=== PATIENT | female | born 2000 | race Caucasian/White ===

== ENCOUNTER 2022-10-09 14:26 | Inpatient (IN) ==
[2022-10-09] MEDS ORDERED: LIDOCAINE 1% LOCAL 20 ML VIAL INFIL PRN (14:42)
[2022-10-09] MEDS ORDERED: OXYTOCIN 30 UNITS/500 ML BAG IV PRN ×2 (14:42)
[2022-10-09] MEDS ORDERED: PENICILLIN G POTASSIUM 6 MU in DEXTROSE 5% 250 ML IV STA (14:46)
[2022-10-09 15:10] LABS: Hematocrit (blood only) 36.1 % (37.0-47.0); Hemoglobin 12.6 g/dl (12.0-16.0); Mean Corpuscular Hemoglobin 29.9 pg (25.0-34.0); Mean Corpuscular Hgb Conc 34.9 g/dL (32.0-36.0); Mean Corpuscular Volume 85.7 fL (80.0-100.0); Mean Platelet Volume 11.2 fL (9.4-12.4); Platelet Count 253 K/uL (130-400); RDW Coefficient of Variation 12.9 % (11.5-14.5); RDW Standard Deviation 39.6 fL (36.4-46.3); Red Blood Count 4.21 M/uL (4.20-5.40)
[2022-10-09] MEDS: LACTATED RINGER'S 1,000 ML IV PRN ×2 (16:09→23:05)
--- NOTE | 2022-10-09 16:21 | History & Physical Report ---
Date of Service October 09, 2022 Assessment & Plan (1) Encounter for supervision of normal intrauterine in primigravida, antepartum: Plan: IUP at 39+ weeks for IOL complicated by GDM diet controlled. GBS -positive- PCN G begun now cervical balloon placed without difficulty and pitocin induction begun per protocol anticipate vaginal Admission and Anticipated Discharge Date Admission Date: October 09, 2022 History of Present Illness Primary Care Provider: Jamia Wagner PA-C Patient is a 22 yo EDC 10/12/22 who presents for IOL at 39 4/7 weeks. GBS positive . complicated by obesity, hypothyroidism and GDM. growth scans have been AGA. Allergies Allergy/AdvReac Type Severity Reaction Status Date / Time No Known Allergies Allergy Verified 10/08/22 11:03 Home Medications Medication Instructions Recorded Confirmed Type escitalopram oxalate 10 mg tablet 10 mg PO DAILY 04/16/21 10/09/22 History prenat.vits,stephan,[id number] 1 tab PO DAILY 08/27/21 10/08/22 History betamethasone dipropionate 0.05 % 1 applic topical BID PRN flare ups 03/26/22 10/08/22 History lotion levothyroxine 150 mcg tablet 150 mcg PO DAILY #30 tabs 08/05/22 10/09/22 Rx Patient History Medical History (Updated 09/23/22 @ 09:55 by Pilar Atkinson) Anxiety Hypothyroidism Missed Surgical History No significant past surgical history Family History Grandfather (Maternal) Hypertension Parkinson disease Aunt Hypothyroid Denies family history of Ovarian cancer Breast cancer Lung cancer Colorectal cancer Social History (Updated 03/26/22 @ 17:20 by Bonnie Baum) Smoking Status: Never smoker Do You Dip or Chew Tobacco: No; Hx Alcohol Use: No Hx Substance Use: No Preferred Language: Slovak Communication Ability: Effective marital status: marital status details: Olvin (23) [phone] Current Living Situation: Spouse Current Living Situation Comment: FOB and 4 dogs current occupational status: unemployed current occupation: manage rental properties. How many Children do You have: 0 Feels Safe at Home: Yes Review of Systems All systems reviewed & are unremarkable except as noted in HPI & below Physical Exam Constitutional: WD/WN, vitals as above Psychiatric: A+Ox3, euthymic affect Genitourinary: OB Exam Abdomen: + vertex, + estimated weight (7-8 pounds) and + irregular contractions Manual OB Exam: + cervical dilation 1 cm, + cervical effacement 50% and + station -2 OB Exam Monitor Tracing: + external FHT monitor used, + external uterine monitor used, + category I and + normal FHT variability cervical balloon inserted into the internal os and then filled with 40 cc sterile water. the catheter was then put on traction and secured to her left thigh. patient tolerated procedure well. Results & Data Vital Signs (Past 12 Hours) Vital Signs Pulse BP 10/09/22 16:11 78 10/09/22 16:11 138/75 10/09/22 15:51 90 140/88 10/09/22 15:41 91 H 136/105 H 10/09/22 15:32 88 163/75 H 10/09/22 15:22 93 H 141/71 H 10/09/22 15:10 90 146/84 H Code Status & VTE Plan VTE Prophylaxis Plan VTE Prophylaxis will be ordered: No Coding Level of Care Code None Diagnoses Encounter for supervision of normal intrauterine in primigravida, antepartum Z34.00
[2022-10-09] MEDS: PENICILLIN G POTASSIUM 3 MU in DEXTROSE 5% 100 ML IV PRN (20:15)
[2022-10-09] MEDS ORDERED: LIDOCAINE 2%/EPINEPHRINE 1:200,000 20 ML PF ONE (22:35)
[2022-10-09] MEDS ORDERED: SODIUM CHLORIDE 0.9% PF INJ 10 ML VIAL ONE (22:35)
[2022-10-09] MEDS ORDERED: ePHEDrine sulfate 50 MG/ML AMP ONE (22:35)
[2022-10-09] MEDS ORDERED: BUPIVACAINE 0.25% PF 30 ML VIAL ONE (22:35)
[2022-10-09] MEDS ORDERED: fentaNYL citrate PF 100 MCG/2 ML VIAL ONE (22:35)
[2022-10-09] MEDS ORDERED: fentaNYL 2MCG/ML ROPIVACAINE 1.25MG/ML 100 ML BAG EPI ONE (22:36)
[2022-10-09] MEDS ORDERED: fentaNYL 2MCG/ML ROPIVACAINE 1.25MG/ML 100 ML BAG EPI PRN (23:37)
[2022-10-09] MEDS ORDERED: ONDANSETRON INJ 2 MG/ML 2 ML VIAL IV PRN (23:37)
[2022-10-09] MEDS ORDERED: ePHEDrine sulfate 50 MG/ML AMP IV PRN (23:37)
[2022-10-09] MEDS ORDERED: diphenhydrAMINE 50 MG/ML VIAL IV PRN (23:37)
[2022-10-09] MEDS ORDERED: LIDOCAINE 2% MPF LOCAL 5 ML VIAL EPI PRN (23:37)
[2022-10-09] MEDS ORDERED: BUPIVACAINE 0.25% PF 30 ML VIAL EPI STA (23:37)
[2022-10-09] MEDS ORDERED: ROPIVACAINE 0.5% PF 5 MG/ML 20 ML VIAL EPI PRN (23:37)
[2022-10-09] MEDS ORDERED: NALBUPHINE HCL INJ 10 MG/ML AMP IV PRN (23:37)
[2022-10-09] MEDS ORDERED: NALOXONE HCL 1 MG in SODIUM CHLORIDE 0.9% 1000ML 1,000 ML IV PRN (23:37)
[2022-10-09] MEDS ORDERED: fentaNYL citrate PF 100 MCG/2 ML VIAL EPI PRN (23:37)
[2022-10-09] MEDS ORDERED: SODIUM CHLORIDE 0.9% PF INJ 10 ML VIAL EPI PRN (23:37)
[2022-10-09] MEDS ORDERED: fentaNYL citrate PF 100 MCG/2 ML VIAL EPI STA (23:37)
[2022-10-09] MEDS ORDERED: BUPIVACAINE 0.25% PF 30 ML VIAL EPI PRN (23:37)
[2022-10-09] MEDS ORDERED: SODIUM CHLORIDE 0.9% PF INJ 10 ML VIAL EPI STA (23:37)
[2022-10-09] MEDS ORDERED: NALOXONE HCL 0.4 MG/1 ML VIAL/CARP IV PRN (23:37)
[2022-10-09] MEDS ORDERED: LIDOCAINE 2%/EPINEPHRINE 1:200,000 20 ML PF EPI STA (23:37)
--- NOTE | 2022-10-09 23:37 | Anesthesiology Consultation ---
Date of Service October 09, 2022 Assessment & Plan Chart Review Chart Review: Patient NOT seen in Pre Admission Testing and Acceptable Risk for Labor Epidural Consults Requested none ASA ASA2 Proposed Anesthesia Anesthesia Type: Labor Epidural Risk / Benefits Reviewed With: PT / POA / Parent / Guardian, Accepts Plan and Informed Consent Obtained History Height/Weight Height: 5 ft 7 in Weight: 136.263 kg Allergies Allergy/AdvReac Type Severity Reaction Status Date / Time No Known Allergies Allergy Verified 10/08/22 11:03 Medications Home Medications Medication Instructions Recorded Confirmed Last Taken escitalopram oxalate 10 mg tablet 10 mg PO DAILY 04/16/21 10/09/22 10/08/22 22:00 prenat.vits,stephan,uvm-rjig-buusa 1 tab PO DAILY 08/27/21 10/08/22 10/09/22 08:00 betamethasone dipropionate 0.05 % 1 applic topical BID PRN flare ups 03/26/22 10/08/22 Unknown lotion levothyroxine 150 mcg tablet 150 mcg PO DAILY #30 tabs 08/05/22 10/09/22 10/09/22 08:00 Active Medications Generic Name Dose Route Start Last Admin Trade Name Freq PRN Reason Stop Dose Admin Oxytocin 30 units in 500 mls @ 11 mls/hr 10/09/22 14:42 10/09/22 21:03 Pitocin IV 10/11/22 14:41 0.66 units/hr .Q24H PRN 11 mls/hr Labor Induction/Augmentation Titration Protocol 0.66 UNITS/HR Lactated Ringer's 1,000 mls @ 125 mls/hr 10/09/22 14:42 10/09/22 23:05 Lr IV 10/11/22 14:41 125 mls/hr .Q8H PRN Administration L&D Protocol Protocol Penicillin G Potassium 3 mu/ 106 mls @ 100 mls/hr 10/09/22 17:42 10/09/22 21:20 Dextrose IV 10/19/22 17:41 Infused Q4H PRN Infusion GBS(+) Until Delivery Past Medical History Medical History (Updated 09/23/22 @ 09:55 by Pilar Atkinson) Anxiety Hypothyroidism Missed Exercise / Class Metabolic Activity II 4-5 Yardwork/Stairs/Walk up hill Past Family History Family History Grandfather (Maternal) Hypertension Parkinson disease Aunt Hypothyroid Denies family history of Ovarian cancer Breast cancer Lung cancer Colorectal cancer Past Surgical History Surgical History No significant past surgical history Past Anesthesia History No Hx of Anesthesia Complications and No Family Hx of Anesthesia Complications History of PONV No Hx of PONV and No Hx of Motion Sickness Social History Smoking Status: Never smoker Do You Dip or Chew Tobacco: No Hx Alcohol Use: No Hx Substance Use: No Physical Exam Vital Signs Last Vital Signs Temp 36.9 C 10/09/22 19:00 Pulse 82 10/09/22 23:34 Resp 18 10/09/22 19:00 BP 129/60 10/09/22 23:36 Pulse Ox 98 10/09/22 23:34 ENMT Mouth: no dentition abnormality Thyromental Distance: > or= 3.5 Finger Breadths Mallampati Class: II Neck normal visual inspection Respiratory normal respiratory effort Auscultation: lungs clear to auscultation bilaterally Cardiovascular Rate/Rhythm: regular rate and regular rhythm Psychiatric Orientation: alert Testing Laboratory Results 10/09/22 14:52 Blood Type O Positive 10/09/22 14:52 Antibody Screen NEGATIVE 10/09/22 14:52 10/09/22 20:00 POC Glucose 84
[2022-10-10] MEDS: PENICILLIN G POTASSIUM 3 MU in DEXTROSE 5% 100 ML IV PRN ×3 (00:08→08:26)
[2022-10-10] MEDS ORDERED: LEVOTHYROXINE SODIUM 150 MCG TABLET PO SCH (06:30)
[2022-10-10] MEDS: LACTATED RINGER'S 1,000 ML IV PRN (06:31)
[2022-10-10] MEDS ORDERED: ESCITALOPRAM OXALATE 10 MG TAB PO SCH (09:00)
--- NOTE | 2022-10-10 09:05 | Labor Progress Brief Note ---
Date of Service October 10, 2022 Change of on-call at 830 I have examined the patient she still remains at most 5 cm and is -2 very high and posterior she has an IUPC in place and is showing adequate contractions with well over 200 [place] units per 10 minutes block there are some decelerations with contractions which follow an early pattern otherwise the tracing is reassuring this has been induction from yesterday as well I reviewed with the patient that the progress does seem slow I will reassess her as long as contractions are adequate and see if there is any change we discussed if there is no change of the heart rate becomes nonreassuring would recommend I have updated patient with her status and answered their questions Assessment & Plan Admission and Anticipated Discharge Date Admission Date: October 09, 2022 Results & Data Vital Signs (Past 12 Hours) Vital Signs Temp Pulse Resp BP Pulse Ox 10/10/22 08:58 79 98 10/10/22 08:53 78 98 10/10/22 08:49 81 140/76 10/10/22 08:48 81 96 10/10/22 08:43 73 100 10/10/22 08:38 77 99 10/10/22 08:33 97 10/10/22 08:33 73 10/10/22 08:34 75 113/55 L 10/10/22 08:33 77 89 L 10/10/22 08:28 76 99 10/10/22 08:23 76 98 10/10/22 08:18 75 97 10/10/22 08:19 75 123/63 10/10/22 08:13 77 99 10/10/22 08:08 80 96 10/10/22 08:05 71 123/57 L 10/10/22 08:03 77 99 10/10/22 08:00 81 87 L 10/10/22 07:58 82 98 10/10/22 07:53 77 96 10/10/22 07:49 75 126/61 10/10/22 07:48 74 94 10/10/22 07:43 73 97 10/10/22 07:38 74 97 10/10/22 07:35 74 126/63 10/10/22 07:33 74 99 10/10/22 07:25 19 10/10/22 07:25 98.1 F 19 10/10/22 07:28 81 99 10/10/22 07:23 88 90 10/10/22 07:24 90 86 L 10/10/22 07:20 87 134/80 10/10/22 07:18 76 98 10/10/22 07:13 77 98 10/10/22 07:08 83 98 10/10/22 07:03 90 92 10/10/22 07:04 86 138/71 10/10/22 06:58 79 95 10/10/22 06:53 73 96 10/10/22 06:50 75 118/56 L 10/10/22 06:48 81 97 10/10/22 06:43 79 96 10/10/22 06:38 76 96 10/10/22 06:30 18 10/10/22 06:30 18 10/10/22 06:33 75 94 10/10/22 06:34 74 122/61 10/10/22 06:28 77 96 10/10/22 06:23 72 96 10/10/22 06:21 72 120/58 L 10/10/22 06:18 73 95 10/10/22 06:13 74 96 10/10/22 06:00 18 10/10/22 06:00 18 10/10/22 06:08 74 95 10/10/22 06:05 76 123/60 10/10/22 06:03 79 97 10/10/22 05:58 74 95 10/10/22 05:53 72 98 10/10/22 05:49 66 119/56 L 10/10/22 05:48 70 96 10/10/22 05:30 18 10/10/22 05:30 18 10/10/22 05:43 91 H 93 10/10/22 05:38 79 98 10/10/22 05:33 78 99 10/10/22 05:34 77 138/74 10/10/22 05:28 85 98 10/10/22 05:23 74 94 10/10/22 05:18 75 94 10/10/22 05:19 67 122/58 L 10/10/22 05:00 18 10/10/22 05:00 98.4 F 18 10/10/22 05:13 80 97 10/10/22 05:08 80 96 10/10/22 05:03 73 97 10/10/22 05:04 75 127/58 L 10/10/22 04:58 84 97 10/10/22 04:53 70 96 10/10/22 04:30 18 10/10/22 04:30 18 10/10/22 04:48 75 96 10/10/22 04:49 73 120/57 L 10/10/22 04:00 18 10/10/22 04:00 18 10/10/22 03:30 18 10/10/22 03:30 18 10/10/22 04:44 74 88 L 10/10/22 04:43 75 95 10/10/22 04:38 85 99 10/10/22 04:33 70 94 10/10/22 04:34 67 121/56 L 10/10/22 04:28 73 96 10/10/22 04:29 78 86 L 10/10/22 04:23 75 93 10/10/22 04:18 79 95 10/10/22 04:19 76 126/64 10/10/22 04:13 76 96 10/10/22 04:08 71 96 10/10/22 04:04 67 123/58 L 10/10/22 04:03 67 94 10/10/22 03:58 71 96 10/10/22 03:53 76 96 10/10/22 03:48 75 98 10/10/22 03:43 74 97 10/10/22 03:38 93 H 98 10/10/22 03:34 81 133/70 10/10/22 03:33 85 98 10/10/22 03:28 87 97 10/10/22 03:23 85 97 10/10/22 03:18 84 98 10/10/22 03:19 85 145/82 H 10/10/22 03:13 89 97 10/10/22 03:08 94 H 96 10/10/22 03:00 18 10/10/22 03:00 18 10/10/22 03:04 78 133/66 10/10/22 03:03 82 96 10/10/22 02:58 79 96 10/10/22 02:53 82 95 10/10/22 02:48 78 96 10/10/22 02:49 75 128/62 10/10/22 02:43 76 96 10/10/22 02:38 76 96 10/10/22 02:00 18 10/10/22 02:00 18 10/10/22 02:30 18 10/10/22 02:30 18 10/10/22 02:35 77 136/69 10/10/22 02:33 76 96 10/10/22 02:28 73 97 10/10/22 02:23 80 97 10/10/22 02:20 80 143/69 H 94 10/10/22 02:18 89 96 10/10/22 02:13 83 96 10/10/22 02:08 75 96 10/10/22 02:05 78 129/61 94 10/10/22 02:03 87 97 10/10/22 01:58 79 95 10/10/22 01:53 81 95 10/10/22 01:48 86 96 10/10/22 01:49 81 124/66 93 10/10/22 01:30 18 10/10/22 01:30 18 10/10/22 01:43 79 96 10/10/22 01:38 79 96 10/10/22 01:33 77 93 10/10/22 01:34 77 121/64 10/10/22 01:28 80 96 10/10/22 01:23 76 96 10/10/22 01:00 18 10/10/22 01:00 18 10/10/22 01:18 77 95 10/10/22 01:14 77 98 10/10/22 01:00 18 10/10/22 01:00 18 10/10/22 01:09 97 10/10/22 01:09 75 10/10/22 01:09 72 114/58 L 10/10/22 01:04 77 97 10/10/22 00:59 74 97 10/10/22 00:54 74 97 10/10/22 00:55 73 123/60 10/10/22 00:49 86 98 10/10/22 00:44 77 97 10/10/22 00:39 68 119/59 L 96 10/10/22 00:30 98.2 F 18 10/10/22 00:36 72 94 10/10/22 00:34 69 95 10/10/22 00:29 74 99 10/10/22 00:27 104 H 92 10/10/22 00:24 86 99 10/10/22 00:00 18 10/10/22 00:00 18 10/10/22 00:19 78 98 10/10/22 00:14 72 97 10/10/22 00:09 98 10/10/22 00:09 73 10/10/22 00:10 68 135/63 10/10/22 00:09 73 132/63 10/10/22 00:04 73 97 10/09/22 23:59 97 10/09/22 23:59 72 10/09/22 23:29 18 10/09/22 23:29 18 10/09/22 23:50 18 10/09/22 23:50 18 10/09/22 23:54 98 10/09/22 23:54 76 10/09/22 23:39 98.2 F 10/09/22 23:54 76 10/09/22 23:54 136/63 10/09/22 23:52 71 10/09/22 23:52 132/63 10/09/22 23:49 98 10/09/22 23:49 86 10/09/22 23:48 91 10/09/22 23:48 89 10/09/22 23:44 97 10/09/22 23:44 90 10/09/22 23:44 151/63 H 10/09/22 23:42 78 10/09/22 23:42 146/63 H 10/09/22 23:39 97 10/09/22 23:40 94 10/09/22 23:39 81 10/09/22 23:40 78 10/09/22 23:40 135/58 L 10/09/22 23:38 83 10/09/22 23:38 127/59 L 10/09/22 23:36 79 10/09/22 23:36 129/60 10/09/22 23:34 98 10/09/22 23:34 82 10/09/22 23:34 93 10/09/22 23:34 85 06 23:34 129/65 10/09/22 23:32 91 H 10/09/22 23:32 132/62 10/09/22 23:29 97 10/09/22 23:29 91 H 10/09/22 23:30 89 06 23:30 143/65 H 10/09/22 23:28 92 10/09/22 23:28 90 10/09/22 23:28 143/66 H 10/09/22 23:26 85 10/09/22 23:26 146/71 H 10/09/22 23:24 96 10/09/22 23:24 86 10/09/22 23:21 93 10/09/22 23:21 94 H 10/09/22 23:19 98 10/09/22 23:19 92 H 10/09/22 23:14 97 10/09/22 23:14 84 10/09/22 22:56 98 10/09/22 22:56 77 10/09/22 22:51 98 10/09/22 22:51 71 10/09/22 22:46 97 10/09/22 22:46 78 10/09/22 22:41 97 10/09/22 22:41 77 10/09/22 22:36 97 10/09/22 22:36 82 10/09/22 22:31 97 10/09/22 22:31 72 10/09/22 22:30 67 10/09/22 22:30 124/60 10/09/22 21:18 66 10/09/22 21:18 115/56 L Coding Level of Care Code None Diagnoses
--- NOTE | 2022-10-10 10:33 | Labor Progress Brief Note ---
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 The patient was counseled to the nature of the procedure including alternatives such as labor. Risks were discussed including bleeding infection injury to bowel bladder ureter vessels and even baby. Deep Vein thrombosis, pulmonary embolus discussed. Breakdown of incision reviewed. Deep vein thrombosis pulmonary embolus hernia and failure of the incision to heal were discussed Patient verbalized understanding of this and was given ample time to ask questions Assessment & Plan Admission and Anticipated Discharge Date Admission Date: October 09, 2022 Results & Data Vital Signs (Past 12 Hours) Vital Signs Temp Pulse Resp BP Pulse Ox 10/10/22 10:28 113 H 100 10/10/22 10:23 74 97 10/10/22 10:19 74 140/72 10/10/22 10:18 86 98 10/10/22 10:13 99.1 F 80 18 97 10/10/22 10:08 77 98 10/10/22 10:04 86 137/75 10/10/22 10:03 78 99 10/10/22 09:58 78 98 10/10/22 09:53 79 98 10/10/22 09:48 80 97 10/10/22 09:49 75 140/75 10/10/22 09:43 75 98 10/10/22 09:38 77 97 10/10/22 09:34 76 135/71 10/10/22 09:33 79 98 10/10/22 09:28 79 98 10/10/22 09:23 75 98 10/10/22 09:20 82 133/83 10/10/22 09:18 81 97 10/10/22 09:13 81 99 10/10/22 09:08 75 98 10/10/22 09:04 74 138/78 10/10/22 09:03 78 98 10/10/22 08:58 79 98 10/10/22 08:53 78 98 10/10/22 08:49 81 140/76 10/10/22 08:48 81 96 10/10/22 08:43 73 100 10/10/22 08:38 77 99 10/10/22 08:33 97 10/10/22 08:33 73 10/10/22 08:34 75 113/55 L 10/10/22 08:33 77 89 L 10/10/22 08:28 76 99 10/10/22 08:23 76 98 10/10/22 08:18 75 97 10/10/22 08:19 75 123/63 10/10/22 08:13 77 99 10/10/22 08:08 80 96 10/10/22 08:05 71 123/57 L 10/10/22 08:03 77 99 10/10/22 08:00 81 87 L 10/10/22 07:58 82 98 10/10/22 07:53 77 96 10/10/22 07:49 75 126/61 10/10/22 07:48 74 94 10/10/22 07:43 73 97 10/10/22 07:38 74 97 10/10/22 07:35 74 126/63 10/10/22 07:33 74 99 10/10/22 07:25 19 10/10/22 07:25 98.1 F 19 10/10/22 07:28 81 99 10/10/22 07:23 88 90 10/10/22 07:24 90 86 L 10/10/22 07:20 87 134/80 10/10/22 07:18 76 98 10/10/22 07:13 77 98 10/10/22 07:08 83 98 10/10/22 07:03 90 92 10/10/22 07:04 86 138/71 10/10/22 06:58 79 95 10/10/22 06:53 73 96 10/10/22 06:50 75 118/56 L 10/10/22 06:48 81 97 10/10/22 06:43 79 96 10/10/22 06:38 76 96 06 06:30 18 06/22/23 06:30 18 10/10/22 06:33 75 94 10/10/22 06:34 74 122/61 10/10/22 06:28 77 96 10/10/22 06:23 72 96 10/10/22 06:21 72 120/58 L 10/10/22 06:18 73 95 10/10/22 06:13 74 96 10/10/22 06:00 18 10/10/22 06:00 18 10/10/22 06:08 74 95 10/10/22 06:05 76 123/60 10/10/22 06:03 79 97 10/10/22 05:58 74 95 10/10/22 05:53 72 98 10/10/22 05:49 66 119/56 L 10/10/22 05:48 70 96 10/10/22 05:30 18 10/10/22 05:30 18 10/10/22 05:43 91 H 93 10/10/22 05:38 79 98 10/10/22 05:33 78 99 10/10/22 05:34 77 138/74 10/10/22 05:28 85 98 10/10/22 05:23 74 94 10/10/22 05:18 75 94 10/10/22 05:19 67 122/58 L 10/10/22 05:00 18 10/10/22 05:00 98.4 F 18 10/10/22 05:13 80 97 10/10/22 05:08 80 96 10/10/22 05:03 73 97 10/10/22 05:04 75 127/58 L 10/10/22 04:58 84 97 10/10/22 04:53 70 96 10/10/22 04:30 18 10/10/22 04:30 18 10/10/22 04:48 75 96 10/10/22 04:49 73 120/57 L 10/10/22 04:00 18 10/10/22 04:00 18 10/10/22 03:30 18 10/10/22 03:30 18 10/10/22 04:44 74 88 L 10/10/22 04:43 75 95 10/10/22 04:38 85 99 10/10/22 04:33 70 94 10/10/22 04:34 67 121/56 L 10/10/22 04:28 73 96 10/10/22 04:29 78 86 L 10/10/22 04:23 75 93 10/10/22 04:18 79 95 10/10/22 04:19 76 126/64 10/10/22 04:13 76 96 10/10/22 04:08 71 96 10/10/22 04:04 67 123/58 L 10/10/22 04:03 67 94 10/10/22 03:58 71 96 10/10/22 03:53 76 96 10/10/22 03:48 75 98 10/10/22 03:43 74 97 10/10/22 03:38 93 H 98 10/10/22 03:34 81 133/70 10/10/22 03:33 85 98 10/10/22 03:28 87 97 10/10/22 03:23 85 97 10/10/22 03:18 84 98 10/10/22 03:19 85 145/82 H 10/10/22 03:13 89 97 10/10/22 03:08 94 H 96 10/10/22 03:00 18 10/10/22 03:00 18 10/10/22 03:04 78 133/66 10/10/22 03:03 82 96 10/10/22 02:58 79 96 10/10/22 02:53 82 95 10/10/22 02:48 78 96 10/10/22 02:49 75 128/62 10/10/22 02:43 76 96 10/10/22 02:38 76 96 10/10/22 02:00 18 10/10/22 02:00 18 10/10/22 02:30 18 10/10/22 02:30 18 10/10/22 02:35 77 136/69 10/10/22 02:33 76 96 10/10/22 02:28 73 97 10/10/22 02:23 80 97 10/10/22 02:20 80 143/69 H 94 10/10/22 02:18 89 96 10/10/22 02:13 83 96 10/10/22 02:08 75 96 10/10/22 02:05 78 129/61 94 10/10/22 02:03 87 97 10/10/22 01:58 79 95 10/10/22 01:53 81 95 10/10/22 01:48 86 96 10/10/22 01:49 81 124/66 93 10/10/22 01:30 18 10/10/22 01:30 18 10/10/22 01:43 79 96 10/10/22 01:38 79 96 10/10/22 01:33 77 93 10/10/22 01:34 77 121/64 10/10/22 01:28 80 96 10/10/22 01:23 76 96 10/10/22 01:00 18 10/10/22 01:00 18 10/10/22 01:18 77 95 10/10/22 01:14 77 98 10/10/22 01:00 18 10/10/22 01:00 18 10/10/22 01:09 97 10/10/22 01:09 75 10/10/22 01:09 72 114/58 L 10/10/22 01:04 77 97 10/10/22 00:59 74 97 10/10/22 00:54 74 97 10/10/22 00:55 73 123/60 10/10/22 00:49 86 98 10/10/22 00:44 77 97 10/10/22 00:39 68 119/59 L 96 10/10/22 00:30 98.2 F 18 10/10/22 00:36 72 94 10/10/22 00:34 69 95 10/10/22 00:29 74 99 10/10/22 00:27 104 H 92 10/10/22 00:24 86 99 10/10/22 00:00 18 10/10/22 00:00 18 10/10/22 00:19 78 98 10/10/22 00:14 72 97 10/10/22 00:09 98 10/10/22 00:09 73 10/10/22 00:10 68 135/63 10/10/22 00:09 73 132/63 10/10/22 00:04 73 97 10/09/22 23:59 97 10/09/22 23:59 72 06 23:29 18 10/09/22 23:29 18 10/09/22 23:50 18 10/09/22 23:50 18 10/09/22 23:54 98 10/09/22 23:54 76 10/09/22 23:39 98.2 F 10/09/22 23:54 76 10/09/22 23:54 136/63 10/09/22 23:52 71 10/09/22 23:52 132/63 10/09/22 23:49 98 10/09/22 23:49 86 10/09/22 23:48 91 10/09/22 23:48 89 10/09/22 23:44 97 10/09/22 23:44 90 10/09/22 23:44 151/63 H 10/09/22 23:42 78 06 23:42 146/63 H 10/09/22 23:39 97 10/09/22 23:40 94 10/09/22 23:39 81 10/09/22 23:40 78 10/09/22 23:40 135/58 L 10/09/22 23:38 83 10/09/22 23:38 127/59 L 10/09/22 23:36 79 10/09/22 23:36 129/60 10/09/22 23:34 98 10/09/22 23:34 82 10/09/22 23:34 93 10/09/22 23:34 85 10/09/22 23:34 129/65 10/09/22 23:32 91 H 10/09/22 23:32 132/62 10/09/22 23:29 97 10/09/22 23:29 91 H 10/09/22 23:30 89 10/09/22 23:30 143/65 H 10/09/22 23:28 92 10/09/22 23:28 90 10/09/22 23:28 143/66 H 10/09/22 23:26 85 06 23:26 146/71 H 10/09/22 23:24 96 06 23:24 86 10/09/22 23:21 93 06 23:21 94 H 10/09/22 23:19 98 10/09/22 23:19 92 H 10/09/22 23:14 97 10/09/22 23:14 84 10/09/22 22:56 98 10/09/22 22:56 77 10/09/22 22:51 98 10/09/22 22:51 71 10/09/22 22:46 97 10/09/22 22:46 78 10/09/22 22:41 97 10/09/22 22:41 77 10/09/22 22:36 97 10/09/22 22:36 82 Coding Level of Care Code None Diagnoses
[2022-10-10] MEDS ORDERED: LIDOCAINE 2%/EPINEPHRINE 1:200,000 20 ML PF ONE (10:45)
[2022-10-10] MEDS ORDERED: OXYTOCIN 10 UNITS/ML VIAL ONE (10:46)
[2022-10-10] MEDS ORDERED: MoRPHine SULFATE PF 1 MG/ML 10 ML AMP/VIAL ONE (10:46)
--- NOTE | 2022-10-10 10:59 | Anesthesiology Consultation ---
Date of Service October 10, 2022 Assessment & Plan Chart Review Chart Review: Acceptable Risk for Surgery Consults Requested none ASA [id number] Proposed Anesthesia Anesthesia Type: MAC Epidural Risk / Benefits Reviewed With: PT / POA / Parent / Guardian, Accepts Plan and Informed Consent Obtained History Surgery Operation Date: 10/10/22 10:45 Proposed Procedures p Section in LD - J. Jose Martin Stroud MD, FACOG Height/Weight Height: 5 ft 7 in Weight: 136.263 kg Allergies Allergy/AdvReac Type Severity Reaction Status Date / Time No Known Allergies Allergy Verified 10/08/22 11:03 Medications Home Medications Medication Instructions Recorded Confirmed Last Taken escitalopram oxalate 10 mg tablet 10 mg PO DAILY 04/16/21 10/09/22 10/08/22 22:00 prenat.vits,stephan,[id number] 1 tab PO DAILY 08/27/21 10/08/22 10/09/22 08:00 betamethasone dipropionate 0.05 % 1 applic topical BID PRN flare ups 03/26/22 10/08/22 Unknown lotion levothyroxine 150 mcg tablet 150 mcg PO DAILY #30 tabs 08/05/22 10/09/22 10/09/22 08:00 Active Medications Generic Name Dose Route Start Last Admin Trade Name Freq PRN Reason Stop Dose Admin Oxytocin 30 units in 500 mls @ 19 mls/hr 10/09/22 14:42 10/10/22 05:10 Pitocin IV 10/11/22 14:41 1.14 units/hr .Q24H PRN 19 mls/hr Labor Induction/Augmentation Titration Protocol 1.14 UNITS/HR Lactated Ringer's 1,000 mls @ 125 mls/hr 10/09/22 14:42 10/10/22 08:50 Lr IV 10/11/22 14:41 125 mls/hr .Q8H PRN Infusion L&D Protocol Protocol Penicillin G Potassium 3 mu/ 106 mls @ 100 mls/hr 10/09/22 17:42 10/10/22 08:26 Dextrose IV 10/19/22 17:41 100 mls/hr Q4H PRN Administration GBS(+) Until Delivery Levothyroxine Sodium 150 mcg 10/10/22 06:30 10/10/22 05:39 Levothyroxine Sodium 150 Mcg Tablet PO 11/09/22 06:29 150 mcg DAILYBB NIKOLE Administration Ropivacaine 100 ml 10/09/22 23:37 10/10/22 07:07 Fentanyl 2mcg/Ml Ropivacaine 1.25mg/Ml 100 Ml Bag EPI 10/10/22 23:36 100 ml PRN PRN Administration Pain R/T Labor Protocol Past Medical History Medical History Anxiety Hypothyroidism Missed Exercise / Class Metabolic Activity II 4-5 Yardwork/Stairs/Walk up hill Past Family History Family History Grandfather (Maternal) Hypertension Parkinson disease Aunt Hypothyroid Denies family history of Ovarian cancer Breast cancer Lung cancer Colorectal cancer Past Surgical History Surgical History No significant past surgical history Past Anesthesia History No Hx of Anesthesia Complications and No Family Hx of Anesthesia Complications History of PONV No Hx of PONV and No Hx of Motion Sickness Social History Smoking Status: Never smoker Do You Dip or Chew Tobacco: No Hx Alcohol Use: No Hx Substance Use: No Physical Exam Vital Signs Last Vital Signs Temp 99.1 F 10/10/22 10:13 Pulse 88 10/10/22 10:53 Resp 18 10/10/22 10:13 BP 136/90 10/10/22 10:49 Pulse Ox 99 10/10/22 10:53 ENMT Mouth: no dentition abnormality Thyromental Distance: > or= 3.5 Finger Breadths Mallampati Class: III Neck normal visual inspection Respiratory normal respiratory effort Auscultation: lungs clear to auscultation bilaterally Cardiovascular Rate/Rhythm: regular rate and regular rhythm Testing Laboratory Results 10/09/22 14:52 Blood Type O Positive 10/09/22 14:52 Antibody Screen NEGATIVE 10/09/22 14:52
[2022-10-10] MEDS ORDERED: ONDANSETRON INJ 2 MG/ML 2 ML VIAL ONE (11:16)
[2022-10-10] MEDS ORDERED: PHENYLEPHRINE 100MCG/ML 5ML SYR ONE (11:16)
[2022-10-10] MEDS ORDERED: ceFAZolin 330 MG/ML 1 GM VIAL ONE (11:16)
[2022-10-10] MEDS ORDERED: NALBUPHINE HCL INJ 10 MG/ML AMP IV PRN (11:33)
[2022-10-10] MEDS ORDERED: MEPERIDINE HCL 25 MG/ML CARP/VIAL IV PRN (11:33)
[2022-10-10] MEDS ORDERED: NALOXONE HCL 1 MG in SODIUM CHLORIDE 0.9% 1000ML 1,000 ML IV PRN (11:33)
[2022-10-10] MEDS ORDERED: MoRPHine SULFATE PF 1 MG/ML 10 ML AMP/VIAL INT SPINAL ONE (11:33)
[2022-10-10] MEDS ORDERED: diphenhydrAMINE 50 MG/ML VIAL IV PRN (11:33)
[2022-10-10] MEDS ORDERED: LACTATED RINGER'S 500 ML IV PRN (11:33)
[2022-10-10] MEDS ORDERED: NALOXONE HCL 0.08 MG in SYRINGE 1.8 ML IV PRN (11:33)
[2022-10-10] MEDS ORDERED: ePHEDrine sulfate 50 MG/ML AMP IV PRN (11:33)
[2022-10-10] MEDS ORDERED: ONDANSETRON INJ 2 MG/ML 2 ML VIAL IV PRN ×2 (11:33→12:28)
[2022-10-10] MEDS ORDERED: NALOXONE HCL 0.4 MG/1 ML VIAL/CARP IV PRN (11:33)
[2022-10-10] MEDS ORDERED: NO NARCOTICS OR SEDATIVES SCH (11:45)
[2022-10-10] MEDS ORDERED: SODIUM CHLORIDE 0.9% 1000ML 1,000 ML IV SCH (11:45)
[2022-10-10] MEDS ORDERED: DC INTRASPINAL MORPHINE SCH (11:45)
[2022-10-10 12:01] LABS: Base Excess Cord Arterial Bld -3.5 mEq/L (-9-1.8); CO2 Cord Arterial Blood 56 mmHg (39.1-73.5); HCO3 Cord Arterial Blood 25 mmol/L (19.7-28.5); Oxygen Sat Cord Arterial Blood < 60.0 % (<60); PO2 Cord Arterial Blood 15 mmHg (4.1-31.7); pH Cord Arterial Blood 7.25 (7.1-7.38)
[2022-10-10 12:02] LABS: Cord Venous Blood HCO3 23 mmol/L (18.4-26.8); Cord Venous Blood PCO2 42 mmHg (30.4-57.2); Cord Venous Blood PO2 35 mmHg (14.1-43.3); Cord Venous Blood pH 7.34 (7.20-7.44); O2 Saturation Cord Venous Bld 73.2 % (<68)
--- NOTE | 2022-10-10 12:05 | Operative Report ---
PG Post Operative Report Pre & Post Diagnosis Operation Date: 10/10/22 10:45 Pre-Op Diagnosis: 1. intolerance to labor 2. Failure to progress Post-Op Diagnosis: Same I identified the patient and participated in the time-out.: Yes Procedure Operation Date: 10/10/22 10:45 Actual Procedures p Section in LD with the of a live female child at - Yumiko Stroud MD, FACOG Surgeon Yumiko Stroud MD, FACOG Silk Weaver Dr. Galvan Estimated Blood Loss 700 Findings Consistent with Post-Op Diagnosis Specimens cord gases, blood Description of Procedure Regional anesthetic had been given by anesthesia patient was prepped and draped with a leftward tilt preoperative antibiotics had been given in appropriate timing by anesthesiology. Once the prep was allowed to fully dry timeout was performed. Pickups with teeth were used to test the incision area was found to be adequate for incision as the patient did not feel sharp pain. Scalpel was used to make a Pfannenstiel incision on the lower abdomen. We then cut through the subcutaneous fat down to the level of the anterior rectus sheath fascia this was cut in the midline and then extended laterally with the curved Le scissors. At this stage we then placed 2 Margarita clamps on the anterior aspect of the fascia. Using the curved Le's we are able to dissect the fascia superiorly away from the rectus muscles. Care was taken to maintain hemostasis. Margarita clamps were then placed to the inferior aspect of the anterior sheath of the fascia. Fascia was then dissected away from the rectus muscles inferiorly towards the pubic bone. A Margarita was then placed in the midline both inferiorly and superiorly. This was to allow exposure by retraction rectus muscles were in the midline with were then able to cut through the peritoneum and then enter the peritoneal cavity. Opening was enlarged to allow exposure of the peritoneal cavity both superiorly and inferiorly. Once adequate space was obtained a bladder retractor was placed to expose the lower segment Metzenbaums were used to dissect the bladder flap inferiorly away from the uterus. This was done sharply bladder retractor was then repositioned to expose the lower segment of the uterus Fresh scalpel was used to make a low transverse incision on the uterus. Uterus was then entered bluntly with the operators finger, membranes ruptured and the opening was enlarged using the operators fingers bluntly pulling superiorly and inferiorly to allow exposure. Baby was delivered by first flexion of the head elevation of the head out of the pelvis and then pressure by the assistant professor of history on the maternal abdomen. Baby's head was then delivered mouth and then nares were suctioned and then using gentle traction the baby was fully delivered. Live vigorous infant. Fluid was clear cord clamped and cut cord gases obtained cord blood obtained baby handed to pediatrics. Placenta removed was removed with traction we ensure the entire placenta was removed with a moist lap sponge into the uterus Uterus was then exteriorized. IV Pitocin had been started by anesthesia tone improved there were no extensions the uterus was then closed using 0 Monocryl in a 2 layer closure the first layer closed in a running locked fashion from left to right and then a second closure from left to right in a running nonlocked fashion. At this stage hemostasis was excellent. Uterus was placed back in the peritoneal cavity with suction irrigation out and inspection of the uterus at this stage revealed excellent hemostasis Retractors were removed urine color was clear at this stage of the case we inspected the rectus muscles they were hemostatic fascia was closed with 0 Vicryl subcutaneous fat was irrigated and closed with 3-0 Vicryl skin closed with 4-0 subcuticular Monocryl Note the uterus and adnexa were normal additionally we ensured all placenta rem orsmery from the uterus There was 1 loose nuchal cord was passed over the head no other issues I attest to the content of the Intraoperative Record and any orders documented therein. Any exceptions are noted below. OB Procedure Charges 07176
[2022-10-10] MEDS ORDERED: DIPHTHERIA/TETANUS/PERTUSSIS Vaccine (Tdap, Age 7+yrs) 0.5mL SYR/VL IM ONE (12:28)
[2022-10-10] MEDS ORDERED: LACTATED RINGER'S 1,000 ML IV SCH (12:28)
[2022-10-10] MEDS ORDERED: SENNA 8.6 MG TAB PO PRN (12:28)
[2022-10-10] MEDS ORDERED: HYDROCORTISONE ACETATE 25 MG SUPP PR PRN (12:28)
[2022-10-10] MEDS ORDERED: BENZOCAINE 20% AER SPR 82.5 GM CAN EXT PRN (12:28)
[2022-10-10] MEDS ORDERED: MAGNESIUM HYDROXIDE SUSP 30 ML UDC PO PRN (12:28)
--- NOTE | 2022-10-10 13:26 | Anesthesia Procedure Note ---
Date of Service October 10, 2022 Anesthesia Post Epidural Note Vital Signs Vital Signs: Temp Pulse Resp BP Pulse Ox 98.2 F 97 H 19 131/66 98 10/10/22 12:08 10/10/22 13:16 10/10/22 12:08 10/10/22 13:09 10/10/22 13:16 Pain Intensity Bilateral Abdomen: Pain Intensity: 4 Notes Mental Status: alert / awake / arousable and participated in evaluation Nausea / Vomiting: adequately controlled Pain: adequately controlled Airway Patency, RR, SpO2: stable & adequate BP & HR: stable & adequate Hydration State: stable & adequate Neuraxial Anesthesia: was administered and sensory block is resolving Anesthetic Complications: no major complications apparent and Pt Satisfied with anesthetic care Epidural: Removed without complications and With tip intact
--- NOTE | 2022-10-10 13:26 | Anesthesiology Progress Note ---
Date of Service October 10, 2022 Anesthesia Post Procedure Vital Signs Vital Signs: Temp Pulse Resp BP Pulse Ox 10/10/22 12:08 98.2 F 19 10/09/22 16:33 98.6 F 78 22 138/75 10/10/22 13:16 97 H 98 10/10/22 13:11 89 97 10/10/22 13:09 92 H 131/66 10/10/22 13:06 106 H 97 10/10/22 13:01 97 H 97 10/10/22 12:59 112 H 127/54 L 10/10/22 12:56 84 97 10/10/22 12:51 82 97 10/10/22 12:48 84 144/66 H 10/10/22 12:46 79 98 10/10/22 12:41 97 H 97 10/10/22 12:40 92 H 140/58 L 10/10/22 12:36 91 H 96 10/10/22 12:31 94 10/10/22 12:31 91 H 10/10/22 12:31 88 93 10/10/22 12:28 105 H 116/59 L 10/10/22 12:24 85 100 10/10/22 12:20 92 H 113/52 L 10/10/22 12:19 93 H 100 10/10/22 12:18 93 H 89/57 L 10/10/22 12:16 92 H 92 10/10/22 12:14 85 100 10/10/22 12:09 89 100 10/10/22 10:53 88 99 10/10/22 10:48 89 95 10/10/22 10:49 92 H 136/90 10/10/22 10:43 92 H 96 10/10/22 10:40 120 H 89 L 10/10/22 10:38 84 98 10/10/22 10:33 80 98 10/10/22 10:34 86 133/89 10/10/22 10:28 113 H 100 10/10/22 10:23 74 97 10/10/22 10:19 74 140/72 10/10/22 10:18 86 98 10/10/22 10:13 99.1 F 80 18 97 10/10/22 10:08 77 98 10/10/22 10:04 86 137/75 10/10/22 10:03 78 99 10/10/22 09:58 78 98 06 09:53 79 98 06 09:48 80 97 06 09:49 75 140/75 06 09:43 75 98 06 09:38 77 97 06 09:34 76 135/71 10/10/22 09:33 79 98 06 09:28 79 98 06 09:23 75 98 06 09:20 82 133/83 06 09:18 81 97 06 09:13 81 99 06 09:08 75 98 06 09:04 74 138/78 06 09:03 78 98 10/10/22 08:58 79 98 10/10/22 08:53 78 98 10/10/22 08:49 81 140/76 10/10/22 08:48 81 96 10/10/22 08:43 73 100 10/10/22 08:38 77 99 10/10/22 08:33 97 10/10/22 08:33 73 10/10/22 08:34 75 113/55 L 10/10/22 08:33 77 89 L 10/10/22 08:28 76 99 10/10/22 08:23 76 98 10/10/22 08:18 75 97 10/10/22 08:19 75 123/63 10/10/22 08:13 77 99 10/10/22 08:08 80 96 10/10/22 08:05 71 123/57 L 10/10/22 08:03 77 99 10/10/22 08:00 81 87 L 10/10/22 07:58 82 98 10/10/22 07:53 77 96 06 07:49 75 126/61 10/10/22 07:48 74 94 06 07:43 73 97 10/10/22 07:38 74 97 06 07:35 74 126/63 10/10/22 07:33 74 99 06 07:25 19 06 07:25 98.1 F 19 10/10/22 07:28 81 99 06 07:23 88 90 06 07:24 90 86 L 0622/23 07:20 87 134/80 10/10/22 07:18 76 98 10/10/22 07:13 77 98 10/10/22 07:08 83 98 10/10/22 07:03 90 92 10/10/22 07:04 86 138/71 10/10/22 06:58 79 95 10/10/22 06:53 73 96 10/10/22 06:50 75 118/56 L 10/10/22 06:48 81 97 10/10/22 06:43 79 96 10/10/22 06:38 76 96 10/10/22 06:30 18 10/10/22 06:30 18 10/10/22 06:33 75 94 10/10/22 06:34 74 122/61 10/10/22 06:28 77 96 10/10/22 06:23 72 96 10/10/22 06:21 72 120/58 L 10/10/22 06:18 73 95 10/10/22 06:13 74 96 10/10/22 06:00 18 10/10/22 06:00 18 10/10/22 06:08 74 95 10/10/22 06:05 76 123/60 10/10/22 06:03 79 97 10/10/22 05:58 74 95 10/10/22 05:53 72 98 10/10/22 05:49 66 119/56 L 10/10/22 05:48 70 96 10/10/22 05:30 18 10/10/22 05:30 18 10/10/22 05:43 91 H 93 10/10/22 05:38 79 98 10/10/22 05:33 78 99 10/10/22 05:34 77 138/74 10/10/22 05:28 85 98 10/10/22 05:23 74 94 10/10/22 05:18 75 94 10/10/22 05:19 67 122/58 L 10/10/22 05:00 18 10/10/22 05:00 98.4 F 18 10/10/22 05:13 80 97 10/10/22 05:08 80 96 10/10/22 05:03 73 97 10/10/22 05:04 75 127/58 L 10/10/22 04:58 84 97 10/10/22 04:53 70 96 10/10/22 04:30 18 10/10/22 04:30 18 10/10/22 04:48 75 96 10/10/22 04:49 73 120/57 L 10/10/22 04:00 18 10/10/22 04:00 18 10/10/22 03:30 18 10/10/22 03:30 18 10/10/22 04:44 74 88 L 10/10/22 04:43 75 95 10/10/22 04:38 85 99 10/10/22 04:33 70 94 10/10/22 04:34 67 121/56 L 10/10/22 04:28 73 96 10/10/22 04:29 78 86 L 10/10/22 04:23 75 93 10/10/22 04:18 79 95 10/10/22 04:19 76 126/64 10/10/22 04:13 76 96 10/10/22 04:08 71 96 10/10/22 04:04 67 123/58 L 10/10/22 04:03 67 94 10/10/22 03:58 71 96 10/10/22 03:53 76 96 10/10/22 03:48 75 98 10/10/22 03:43 74 97 10/10/22 03:38 93 H 98 10/10/22 03:34 81 133/70 10/10/22 03:33 85 98 10/10/22 03:28 87 97 10/10/22 03:23 85 97 10/10/22 03:18 84 98 10/10/22 03:19 85 145/82 H 10/10/22 03:13 89 97 10/10/22 03:08 94 H 96 10/10/22 03:00 18 10/10/22 03:00 18 10/10/22 03:04 78 133/66 10/10/22 03:03 82 96 10/10/22 02:58 79 96 10/10/22 02:53 82 95 10/10/22 02:48 78 96 10/10/22 02:49 75 128/62 10/10/22 02:43 76 96 10/10/22 02:38 76 96 10/10/22 02:00 18 10/10/22 02:00 18 10/10/22 02:30 18 10/10/22 02:30 18 10/10/22 02:35 77 136/69 10/10/22 02:33 76 96 10/10/22 02:28 73 97 10/10/22 02:23 80 97 10/10/22 02:20 80 143/69 H 94 10/10/22 02:18 89 96 10/10/22 02:13 83 96 10/10/22 02:08 75 96 10/10/22 02:05 78 129/61 94 10/10/22 02:03 87 97 10/10/22 01:58 79 95 10/10/22 01:53 81 95 10/10/22 01:48 86 96 10/10/22 01:49 81 124/66 93 10/10/22 01:30 18 10/10/22 01:30 18 10/10/22 01:43 79 96 10/10/22 01:38 79 96 10/10/22 01:33 77 93 10/10/22 01:34 77 121/64 10/10/22 01:28 80 96 10/10/22 01:23 76 96 10/10/22 01:00 18 10/10/22 01:00 18 10/10/22 01:18 77 95 10/10/22 01:14 77 98 10/10/22 01:00 18 10/10/22 01:00 18 10/10/22 01:09 97 10/10/22 01:09 75 10/10/22 01:09 72 114/58 L 10/10/22 01:04 77 97 10/10/22 00:59 74 97 10/10/22 00:54 74 97 10/10/22 00:55 73 123/60 10/10/22 00:49 86 98 10/10/22 00:44 77 97 10/10/22 00:39 68 119/59 L 96 10/10/22 00:30 98.2 F 18 10/10/22 00:36 72 94 10/10/22 00:34 69 95 10/10/22 00:29 74 99 10/10/22 00:27 104 H 92 10/10/22 00:24 86 99 10/10/22 00:00 18 10/10/22 00:00 18 10/10/22 00:19 78 98 10/10/22 00:14 72 97 06/22/23 00:09 98 10/10/22 00:09 73 10/10/22 00:10 68 135/63 10/10/22 00:09 73 132/63 10/10/22 00:04 73 97 10/09/22 23:59 97 10/09/22 23:59 72 10/09/22 23:29 18 10/09/22 23:29 18 10/09/22 23:50 18 10/09/22 23:50 18 10/09/22 23:54 98 10/09/22 23:54 76 10/09/22 23:39 98.2 F 10/09/22 23:54 76 10/09/22 23:54 136/63 10/09/22 23:52 71 10/09/22 23:52 132/63 10/09/22 23:49 98 10/09/22 23:49 86 10/09/22 23:48 91 10/09/22 23:48 89 10/09/22 23:44 97 10/09/22 23:44 90 10/09/22 23:44 151/63 H 10/09/22 23:42 78 10/09/22 23:42 146/63 H 10/09/22 23:39 97 10/09/22 23:40 94 10/09/22 23:39 81 10/09/22 23:40 78 10/09/22 23:40 135/58 L 10/09/22 23:38 83 10/09/22 23:38 127/59 L 10/09/22 23:36 79 10/09/22 23:36 129/60 10/09/22 23:34 98 10/09/22 23:34 82 10/09/22 23:34 93 10/09/22 23:34 85 06 23:34 129/65 10/09/22 23:32 91 H 10/09/22 23:32 132/62 10/09/22 23:29 97 06 23:29 91 H 10/09/22 23:30 89 06 23:30 143/65 H 10/09/22 23:28 92 10/09/22 23:28 90 06 23:28 143/66 H 10/09/22 23:26 85 06/21/23 23:26 146/71 H 10/09/22 23:24 96 10/09/22 23:24 86 10/09/22 23:21 93 10/09/22 23:21 94 H 10/09/22 23:19 98 10/09/22 23:19 92 H 10/09/22 23:14 97 10/09/22 23:14 84 10/09/22 22:56 98 10/09/22 22:56 77 10/09/22 22:51 98 10/09/22 22:51 71 10/09/22 22:46 97 10/09/22 22:46 78 10/09/22 22:41 97 10/09/22 22:41 77 10/09/22 22:36 97 10/09/22 22:36 82 10/09/22 22:31 97 10/09/22 22:31 72 10/09/22 22:30 67 10/09/22 22:30 124/60 10/09/22 21:18 66 10/09/22 21:18 115/56 L 10/09/22 20:22 67 10/09/22 20:22 131/64 10/09/22 19:00 18 10/09/22 19:00 98.4 F 18 10/09/22 19:19 76 10/09/22 19:19 136/79 10/09/22 19:03 74 10/09/22 19:03 139/76 10/09/22 18:19 75 10/09/22 18:19 134/61 10/09/22 17:20 107 H 10/09/22 17:20 134/60 10/09/22 16:11 78 10/09/22 16:11 138/75 10/09/22 15:51 90 140/88 10/09/22 15:41 91 H 136/105 H 10/09/22 15:32 88 163/75 H 10/09/22 15:22 93 H 141/71 H 10/09/22 15:10 90 146/84 H Pain Intensity Bilateral Abdomen: Pain Intensity: 4 Transfer of Care Handoff Completed per policy Notes Mental Status: alert / awake / arousable and participated in evaluation Nausea / Vomiting: adequately controlled Pain: adequately controlled Airway Patency, RR, SpO2: stable & adequate BP & HR: stable & adequate Hydration State: stable & adequate Neuraxial Anesthesia: was administered and sensory block is resolving Anesthetic Complications: no major complications apparent and Pt Satisfied with anesthetic care
[2022-10-10] MEDS: KETOROLAC 30 MG/ML VIAL IV PRN (13:48)
[2022-10-10] MEDS: SIMETHICONE 80 MG CHEW PO SCH ×3 (16:28→20:43)
[2022-10-10] MEDS: OXYTOCIN 20 UNITS in LACTATED RINGER'S 1,000 ML IV SCH (16:46)
[2022-10-10] MEDS: ESCITALOPRAM OXALATE 10 MG TAB PO SCH (20:09)
[2022-10-10] MEDS: DOCUSATE SODIUM 100 MG CAP PO SCH (20:43)
[2022-10-11] MEDS ORDERED: LACTATED RINGER'S 1,000 ML IV ONE (00:23)
[2022-10-11] MEDS: OXYTOCIN 20 UNITS in LACTATED RINGER'S 1,000 ML IV SCH (01:28)
[2022-10-11] MEDS: KETOROLAC 30 MG/ML VIAL IV PRN (04:57)
[2022-10-11] MEDS ORDERED: diphenhydrAMINE 50 MG/ML VIAL IV PRN (05:34)
[2022-10-11] MEDS ORDERED: KETOROLAC 30 MG/ML VIAL IV PRN (05:34)
[2022-10-11] MEDS ORDERED: diphenhydrAMINE Capsule 25 MG CAP PO PRN (05:34)
[2022-10-11] MEDS ORDERED: PROMETHAZINE HCL 25 MG in SODIUM CHLORIDE 0.9% 50 ML IV PRN (05:34)
[2022-10-11] MEDS: LEVOTHYROXINE SODIUM 150 MCG TABLET PO SCH (05:56)
--- NOTE | 2022-10-11 06:40 | Obstetrical Progress Note ---
Date of Service October 11, 2022 Assessment & Plan (1) Group beta Strep positive: Postop day #1 from section patient had her catheter just removed has not voided yet pain is well controlled we will work on ambulation today patient has a nichol dressing on and this will need removed at day 7 Subjective Ambulation: ambulating normally Voiding: no voiding problems Passing Gas:: Yes Diet Tolerance:: regular diet Lochia:: Small Constitutional: + as per Subjective / HPI Physical Exam Constitutional WD/WN, vitals as above well developed and well nourished Respiratory normal respiratory effort, lungs clear to auscultation normal respiratory effort Cardiovascular RRR, no murmur, no edema Gastrointestinal (Abdomen) normal bowel sounds, soft, nontender, no hepatosplenomegaly Results & Data Vital Signs (Past 12 Hours) Vital Signs Temp Pulse Resp BP Pulse Ox O2 Del Method 10/11/22 05:07 98.4 F 82 20 131/83 97 Room Air 10/11/22 03:45 16 97 10/11/22 02:45 17 98 10/11/22 01:45 15 96 10/11/22 00:45 16 95 10/10/22 23:45 16 97 10/10/22 22:45 16 95 10/10/22 21:45 15 96 10/10/22 22:35 99.0 F 85 18 105/71 96 Room Air 10/10/22 20:45 15 98 10/10/22 19:45 16 96 10/10/22 20:30 Room Air 10/10/22 18:59 99.0 F 80 18 121/76 99 Room Air 10/10/22 18:43 20 96
[2022-10-11 07:46] LABS: Basophils # (auto) 0.02 K/uL (0-0.2); Basophils % (auto) 0.2 %; Eosinophils # (auto) 0.02 K/uL (0-0.50); Eosinophils % (auto) 0.2 %; Hematocrit (blood only) 27.6 % (37.0-47.0); Hemoglobin 9.4 g/dl (12.0-16.0); Immature Granulocytes # (auto) 0.08 K/uL (0.01-0.20); Immature Granulocytes % (auto) 0.7 %; Lymphocytes # (auto) 1.48 K/uL (1.2-3.4); Lymphocytes % (auto) 13.4 %; Mean Corpuscular Hemoglobin 29.7 pg (25.0-34.0); Mean Corpuscular Hgb Conc 34.1 g/dL (32.0-36.0); Mean Corpuscular Volume 87.3 fL (80.0-100.0); Mean Platelet Volume 11.1 fL (9.4-12.4); Monocytes % (auto) 6.4 %; Neutrophils # (auto) 8.71 K/uL (1.40-6.50); Neutrophils % (auto) 79.1 %; Platelet Count 180 K/uL (130-400); RDW Coefficient of Variation 12.9 % (11.5-14.5); RDW Standard Deviation 41.1 fL (36.4-46.3); Red Blood Count 3.16 M/uL (4.20-5.40); White Blood Count 11.01 K/ul (4.8-10.8)
[2022-10-11] MEDS: FERROUS SULFATE 325 MG TAB PO SCH (08:30)
[2022-10-11] MEDS: DOCUSATE SODIUM 100 MG CAP PO SCH ×2 (08:30→21:01)
[2022-10-11] MEDS: SIMETHICONE 80 MG CHEW PO SCH ×4 (08:30→21:00)
[2022-10-11] MEDS: PRENATAL VITAMIN 1 TAB PO SCH (08:30)
[2022-10-11] MEDS: ESCITALOPRAM OXALATE 10 MG TAB PO SCH (08:31)
[2022-10-11] MEDS: oxyCODONE/ACETAMINOPHEN 5mg/325mg TAB PO PRN ×3 (09:38→21:01)
[2022-10-11] MEDS: IBUPROFEN 600 MG TAB PO PRN ×2 (14:29→21:00)
[2022-10-11] MEDS ORDERED: bisacodyL 5 MG TABEC PO SCH (20:00)
[2022-10-12] MEDS: IBUPROFEN 600 MG TAB PO PRN (05:58)
[2022-10-12] MEDS: oxyCODONE/ACETAMINOPHEN 5mg/325mg TAB PO PRN (05:58)
[2022-10-12] MEDS: LEVOTHYROXINE SODIUM 150 MCG TABLET PO SCH (06:39)
[2022-10-12 07:02] LABS: Hematocrit (blood only) 27.5 % (37.0-47.0); Hemoglobin 9.3 g/dl (12.0-16.0)
--- NOTE | 2022-10-12 08:17 | Obstetrical Progress Note ---
Date of Service October 12, 2022 Assessment & Plan (1) Encounter for supervision of normal intrauterine in primigravida, antepartum: POD#2 doing well. Incision with REAL dressing. Would like to go home today. Reviewed postop instructions. Rx Percocet #20 tabs to [facility] [place]. Followup in office on POD7 for REAL removal. Subjective Ambulation: ambulating normally Voiding: no voiding problems Diet Tolerance:: regular diet Lochia:: Moderate Review of Systems All systems reviewed & are unremarkable except as noted in HPI & below Physical Exam Constitutional WD/WN, vitals as above no acute distress Respiratory normal respiratory effort Cardiovascular Rate/Rhythm: regular rate and regular rhythm Gastrointestinal (Abdomen) Inspection/Auscultation: abdomen normal to inspection; abdomen not distended Percussion/Palpation: abdomen soft Genitourinary OB Exam Abdomen: + fundal height Fundus: + firm; not tender Results & Data Vital Signs (Past 12 Hours) Vital Signs Temp Pulse Resp BP Pulse Ox O2 Del Method 10/12/22 00:05 36.9 C 88 18 130/83 95 Room Air 10/11/22 20:58 18
[2022-10-12] MEDS: ESCITALOPRAM OXALATE 10 MG TAB PO SCH (08:49)
[2022-10-12] MEDS: SIMETHICONE 80 MG CHEW PO SCH (08:49)
[2022-10-12] MEDS: PRENATAL VITAMIN 1 TAB PO SCH (08:50)
[2022-10-12] MEDS: DOCUSATE SODIUM 100 MG CAP PO SCH (08:50)
[2022-10-12] MEDS: FERROUS SULFATE 325 MG TAB PO SCH (08:50)
[2022-10-12] MEDS ORDERED: bisacodyL 10 MG SUPP PR PRN (12:07)
== END 2022-10-12 11:42 | disposition home or self-care (01) | DRG 788 ==
LOC: 4S1 14:26 → 4E2 10-10 15:13

== ENCOUNTER 2022-10-30 12:54 | Observation (INO) ==
[2022-10-30] MEDS ORDERED: SODIUM CHLORIDE 0.9% 1000ML 1,000 ML IV ONE (13:45)
[2022-10-30 13:52] LABS: Basophils # (auto) 0.03 K/uL (0-0.2); Basophils % (auto) 0.3 %; Eosinophils # (auto) 0.04 K/uL (0-0.50); Eosinophils % (auto) 0.4 %; Hematocrit (blood only) 39.9 % (37.0-47.0); Hemoglobin 13.6 g/dl (12.0-16.0); Immature Granulocytes # (auto) 0.03 K/uL (0.01-0.20); Immature Granulocytes % (auto) 0.3 %; Lymphocytes # (auto) 1.88 K/uL (1.2-3.4); Lymphocytes % (auto) 17.3 %; Mean Corpuscular Hemoglobin 29.2 pg (25.0-34.0); Mean Corpuscular Hgb Conc 34.1 g/dL (32.0-36.0); Mean Corpuscular Volume 85.8 fL (80.0-100.0); Mean Platelet Volume 10.7 fL (9.4-12.4); Monocytes # (auto) 0.54 K/uL (0.11-0.59); Neutrophils # (auto) 8.34 K/uL (1.40-6.50); Neutrophils % (auto) 76.7 %; Platelet Count 344 K/uL (130-400); RDW Coefficient of Variation 12.2 % (11.5-14.5); RDW Standard Deviation 37.9 fL (36.4-46.3); Red Blood Count 4.65 M/uL (4.20-5.40); White Blood Count 10.86 K/ul (4.8-10.8)
--- NOTE | 2022-10-30 13:55 | Emergency Department Note ---
History of Present Illness General Chief complaint: Illness Stated complaint: 3 WEEKS POST , BACK SPASMS Time Seen by Provider: 10/30/22 13:20 History of Present Illness Maximum Pain Intensity: 2 22-year-old female who is 3 weeks from on 10/10/2022 presents to the emergency department for evaluation of thoracic back pain. Patient states 2 days ago she developed "tightness" in the middle of her back on both sides. It made it hard for her to breathe. She describes it as a contraction-like feeling. The episode lasted approximately 10 minutes. She notes that her massaged her back which did seem to help as well as taking Aleve. She reports 3 similar episodes again yesterday and once today on the way here to the emergency department. She states the pain does radiate to the front on both sides into her upper stomach. She denies associated chest pain or shortness of breath. However when her muscles are tightening it is difficult to take a deep breath. She feels like the symptoms are exacerbated with more activity such as yesterday she was cleaning the whole house and then experienced it. She notes getting on her hands and knees and stretching her back muscles seems to help. She denies associated headache, visual changes, fever/chills, nausea/vomiting, chest pain, abdominal pain, diarrhea or constipation, urinary symptoms. No hematuria, hematochezia or melena. She does have some minor vaginal bleeding since postop which has not increased. She does note being treated for UTI from Becerra cath for her surgery and finished Keflex antibiotic few days ago. Her urinary symptoms have since resolved. Denies extremity weakness or numbness/tingling. She is able to ambulate without issues. She denies history of kidney stones or previous back injuries. No falls or trauma. Denies history of blood clots. Denies lower extremity swelling or calf pain. She is not currently experiencing her symptoms and has not taken anything today. Home Medications Medication Instructions Recorded Confirmed Type escitalopram oxalate 10 mg tablet 10 mg PO DAILY 04/16/21 10/30/22 History prenat.vits,stephan,vov-[id number] 1 tab PO DAILY 08/27/21 10/30/22 History betamethasone dipropionate 0.05 % 1 applic topical BID PRN flare ups 03/26/22 10/30/22 History lotion levothyroxine 150 mcg tablet 150 mcg PO DAILY #30 tabs 08/05/22 10/30/22 Rx docusate sodium 100 mg capsule 100 mg PO DAILY PRN Constipation 10/30/22 10/30/22 History (Colace) naproxen sodium 220 mg tablet 220 mg PO Q12H PRN Pain 10/30/22 10/30/22 History (Aleve) Allergies Allergy/AdvReac Type Severity Reaction Status Date / Time No Known Allergies Allergy Verified 10/30/22 20:32 Past Med/Surg History Medical History (Updated 10/30/22 @ 21:20 by Katie Wyatt PA-C) Anxiety Hypothyroidism Missed Surgical History (Updated 10/30/22 @ 20:31 by Beronica Lui RN) Previous section Family History Grandfather (Maternal) Hypertension Parkinson disease Aunt Hypothyroid Denies family history of Ovarian cancer Breast cancer Lung cancer Colorectal cancer Social History Smoking Status: Never smoker Do You Dip or Chew Tobacco: No; Hx Alcohol Use: No Hx Substance Use: No Preferred Language: Yi Communication Ability: Effective 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 How many Children do You have: 0 Feels Safe at Home: Yes Assistive Devices: None Physical Exam Vital Signs Vital Signs - 24 hr 10/30/22 13:06 10/30/22 13:44 10/30/22 14:30 Temperature 36.2 C L Temperature Source Temporal Artery Scan Pulse Rate 97 H 96 H Pulse Rate [Apical] 78 Pulse Rate from SpO2 Sensor Respiratory Rate 20 22 Respiratory Depth Normal Normal Blood Pressure 163/88 H Blood Pressure [Right Arm] 142/88 H Blood Pressure Mean 113 Blood Pressure Mean [Right Arm] 106 Blood Pressure Position [Right Arm] Pulse Oximetry 98 Sepsis Recent Fever Within 48 Hours No Sepsis New/Unexplained Change in Mental Status N/A Sepsis Action Taken by Nursing No Action Required 10/30/22 13:30 10/30/22 13:43 10/30/22 13:50 Temperature Temperature Source Pulse Rate 90 83 Pulse Rate [Apical] Pulse Rate from SpO2 Sensor 91 H 84 Respiratory Rate 24 19 Respiratory Depth Blood Pressure Blood Pressure [Right Arm] 141/84 H Blood Pressure Mean Blood Pressure Mean [Right Arm] 103 Blood Pressure Position [Right Arm] Sitting Pulse Oximetry 97 97 Sepsis Recent Fever Within 48 Hours Sepsis New/Unexplained Change in Mental Status Sepsis Action Taken by Nursing 10/30/22 14:00 10/30/22 14:10 10/30/22 14:20 Temperature Temperature Source Pulse Rate 81 82 80 Pulse Rate [Apical] Pulse Rate from SpO2 Sensor 80 85 82 Respiratory Rate 26 H 20 26 H Respiratory Depth Blood Pressure Blood Pressure [Right Arm] Blood Pressure Mean Blood Pressure Mean [Right Arm] Blood Pressure Position [Right Arm] Pulse Oximetry 97 97 99 Sepsis Recent Fever Within 48 Hours Sepsis New/Unexplained Change in Mental Status Sepsis Action Taken by Nursing 10/30/22 14:30 10/30/22 14:40 10/30/22 14:50 Temperature Temperature Source Pulse Rate 77 77 79 Pulse Rate [Apical] Pulse Rate from SpO2 Sensor 74 76 81 Respiratory Rate 23 16 22 Respiratory Depth Blood Pressure Blood Pressure [Right Arm] Blood Pressure Mean Blood Pressure Mean [Right Arm] Blood Pressure Position [Right Arm] Pulse Oximetry 99 99 99 Sepsis Recent Fever Within 48 Hours Sepsis New/Unexplained Change in Mental Status Sepsis Action Taken by Nursing 10/30/22 15:00 10/30/22 15:10 10/30/22 15:20 Temperature Temperature Source Pulse Rate 73 73 78 Pulse Rate [Apical] Pulse Rate from SpO2 Sensor 75 71 77 Respiratory Rate 23 24 23 Respiratory Depth Blood Pressure Blood Pressure [Right Arm] Blood Pressure Mean Blood Pressure Mean [Right Arm] Blood Pressure Position [Right Arm] Pulse Oximetry 100 96 99 Sepsis Recent Fever Within 48 Hours Sepsis New/Unexplained Change in Mental Status Sepsis Action Taken by Nursing 10/30/22 15:26 10/30/22 15:26 10/30/22 15:30 Temperature Temperature Source Pulse Rate 70 73 Pulse Rate [Apical] Pulse Rate from SpO2 Sensor 70 72 Respiratory Rate 17 24 Respiratory Depth Blood Pressure 142/88 H Blood Pressure [Right Arm] Blood Pressure Mean 113 Blood Pressure Mean [Right Arm] Blood Pressure Position [Right Arm] Pulse Oximetry 97 96 Sepsis Recent Fever Within 48 Hours Sepsis New/Unexplained Change in Mental Status Sepsis Action Taken by Nursing 10/30/22 15:31 10/30/22 15:31 10/30/22 15:34 Temperature Temperature Source Pulse Rate 62 76 Pulse Rate [Apical] Pulse Rate from SpO2 Sensor 64 Respiratory Rate 21 30 H Respiratory Depth Blood Pressure 135/88 Blood Pressure [Right Arm] Blood Pressure Mean 99 Blood Pressure Mean [Right Arm] Blood Pressure Position [Right Arm] Pulse Oximetry 96 Sepsis Recent Fever Within 48 Hours Sepsis New/Unexplained Change in Mental Status Sepsis Action Taken by Nursing 10/30/22 15:34 10/30/22 15:36 10/30/22 15:36 Temperature Temperature Source Pulse Rate 76 Pulse Rate [Apical] Pulse Rate from SpO2 Sensor Respiratory Rate 23 Respiratory Depth Blood Pressure 154/92 H 141/84 H Blood Pressure [Right Arm] Blood Pressure Mean 103 108 Blood Pressure Mean [Right Arm] Blood Pressure Position [Right Arm] Pulse Oximetry Sepsis Recent Fever Within 48 Hours Sepsis New/Unexplained Change in Mental Status Sepsis Action Taken by Nursing 10/30/22 15:40 10/30/22 16:04 10/30/22 16:10 Temperature Temperature Source Pulse Rate 78 69 63 Pulse Rate [Apical] Pulse Rate from SpO2 Sensor Respiratory Rate 18 22 16 Respiratory Depth Blood Pressure Blood Pressure [Right Arm] Blood Pressure Mean Blood Pressure Mean [Right Arm] Blood Pressure Position [Right Arm] Pulse Oximetry Sepsis Recent Fever Within 48 Hours Sepsis New/Unexplained Change in Mental Status Sepsis Action Taken by Nursing 10/30/22 16:20 10/30/22 16:30 Temperature Temperature Source Pulse Rate 58 L 70 Pulse Rate [Apical] Pulse Rate from SpO2 Sensor Respiratory Rate 19 21 Respiratory Depth Blood Pressure Blood Pressure [Right Arm] Blood Pressure Mean Blood Pressure Mean [Right Arm] Blood Pressure Position [Right Arm] Pulse Oximetry Sepsis Recent Fever Within 48 Hours Sepsis New/Unexplained Change in Mental Status Sepsis Action Taken by Nursing Constitutional: alert and oriented x3. no acute distress. nontoxic HEENT: normocephalic, atraumatic. normal conjunctiva.PERRLA. EOM's grossly intact. TMs pearly vasquez without effusion. Pharynx pink without exudate. Tonsils nonenlarged. Mucus membranes moist Neck: neck is supple, nontender. midline C-spine nontender Respiratory: lungs are clear to auscultation without wheezes, rhonchi, or rales bilaterally. equal chest rise. normal respiratory effort, no accessory muscle use. Cardiovascular: normal heart sounds with murmur. regular rate and rhythm. GI: abdomen is soft, nontender. No palpable masses. No rebound tenderness or guarding. No CVA tenderness. scar healing appropriately without evidence of infection. No drainage. MSK: No midline or thoracic spine tenderness. Mild paraspinal thoracic muscle tenderness bilaterally. Lower extremities strength +5 and equal bilaterally. Calves nontender Peripheral vascular: Lower extremities warm and well perfused with palpable pedal pulses. Brisk capillary refill. Sensation intact Psych:appropriate mood and affect. Course Administered Medications Lactated Ringer's (Lr) 1,000 mls @ 125 mls/hr IV .Q8H PRN; Protocol PRN Reason: L&D Protocol Stop: 11/01/22 16:32 Last Admin: 10/30/22 20:06 Dose: 75 mls/hr Documented By: ANTOINE Magnesium Sulfate (Magnesium Sulfate / Wtr) 40 gm in 1,000 mls @ 50 mls/hr IV .Q20H NIKOLE Stop: 11/29/22 16:44 Last Infusion: 10/30/22 20:07 Dose: 50 mls/hr Documented By: ALP Co-signed By: AMV Admin: 10/30/22 17:02 Dose: 50 mls/hr Documented By: ACC Co-signed By: DANK Discontinued Medications Sodium Chloride (Nss 1000ml) 1,000 mls @ 999 mls/hr IV .Q1H1M ONE Stop: 10/30/22 14:45 Last Infusion: 10/30/22 19:17 Dose: 0 mls/hr Documented By: Admin: 10/30/22 14:07 Dose: 999 mls/hr Documented By: KULWANT Ioversol (Optiray 320 125ml) 120 ml IV ONCE ONE Stop: 10/30/22 15:59 Last Admin: 10/30/22 15:58 Dose: 120 ml Documented By: OMAYRA Magnesium Sulfate (Mag Sulfate 4gm Bolus From Bag) 4 gm IV ONE ONE Stop: 10/30/22 16:36 Last Admin: 10/30/22 17:02 Dose: 4 gm Documented By: ACC Co-signed By: DANK Medical Decision Making Differential Diagnosis Musculoskeletal, herniated disc, pyelonephritis, UTI, PE, pneumothorax, pneumonia, pericarditis, myocarditis, endometritis, esophageal rupture, GERD, cholecystitis, pancreatitis, as well as other pathologies. Laboratory Data Attestation: I reviewed the patient's lab results. 10/30/22 13:30 10/30/22 13:30 Lab Results 10/30/22 10/30/22 10/30/22 Range/Units 13:30 13:30 13:30 WBC 10.86 H (4.8-10.8) K/ul RBC 4.65 (4.20-5.40) M/uL Hgb 13.6 (12.0-16.0) g/dl Hct 39.9 (37.0-47.0) % MCV 85.8 (80.0-100.0) fL MCH 29.2 (25.0-34.0) pg MCHC 34.1 (32.0-36.0) g/dL RDW Std Deviation 37.9 (36.4-46.3) fL RDW Coeff of Fede 12.2 (11.5-14.5) % Plt Count 344 (130-400) K/uL MPV 10.7 (9.4-12.4) fL Immature Gran % (Auto) 0.3 % Neut % (Auto) 76.7 % Lymph % (Auto) 17.3 % [place] % (Auto) 5.0 % Eos % (Auto) 0.4 % Baso % (Auto) 0.3 % Neut # (Auto) 8.34 H (1.40-6.50) K/uL Lymph # (Auto) 1.88 (1.2-3.4) K/uL [place] # (Auto) 0.54 (0.11-0.59) K/uL Eos # (Auto) 0.04 (0-0.50) K/uL Baso # (Auto) 0.03 (0-0.2) K/uL Immature Gran # (Auto) 0.03 (0.01-0.20) K/uL PT 10.4 (9.0-12.0) Seconds INR 0.9 (0.9-1.1) APTT 26.6 (21.0-31.0) Seconds PTT Ratio 0.9 D-Dimer 700 H* (0-500) ug/L FEU Sodium 142 (136-145) mmol/L Potassium 4.1 (3.5-5.1) mmol/L Chloride 107 (98-107) mmol/L Carbon Dioxide 25 (21-32) mmol/L Anion Gap 10 (3-11) BUN 13 (6-23) mg/dl Creatinine 0.97 (0.6-1.2) mg/dl Est Cr Clr Drug Dosing 121.6 ml/min Est GFR ( Amer) 94.7 ml/min Est GFR (Non-Af Amer) 81.7 ml/min BUN/Creatinine Ratio 13.4 (10-20) Glucose 108 H (70-99(Fasting)) mg/dl Calcium 10.0 (8.6-10.3) mg/dl Total Bilirubin 1.0 (0.2-1.0) mg/dl AST 141 H (13-39) U/L ALT 175 H (7-52) U/L Alkaline Phosphatase 217 H (34-104) U/L Troponin I High Sens 3.2 (0-14) pg/ml Total Protein 8.0 (6.0-8.3) gm/dl Albumin 5.0 (3.4-5.0) gm/dl Globulin 3.0 (2.5-4.0) gm/dl Albumin/Globulin Ratio 1.7 (0.9-2) Urine Color Urine Appearance (Clear) Urine pH (4.5-7.5) Ur Specific Huddy (1.000-1.030) Urine Protein (Negative) Urine Glucose (UA) (Negative) Urine Ketones (Negative) Urine Blood (Negative) Urine Nitrite (Negative) Urine Bilirubin (Negative) Urine Urobilinogen (Negative) Ur Leukocyte Esterase (Negative) Urine WBC (Auto) (0-5) /hpf Urine RBC (Auto) (0-4) /hpf U Hyaline Cast (Auto) (0-5) /lpf U Epithel Cells (Auto) (0-5) /lpf Urine Bacteria (Auto) (Negative) 10/30/22 Range/Units 15:30 WBC (4.8-10.8) K/ul RBC (4.20-5.40) M/uL Hgb (12.0-16.0) g/dl Hct (37.0-47.0) % MCV (80.0-100.0) fL MCH (25.0-34.0) pg MCHC (32.0-36.0) g/dL RDW Std Deviation (36.4-46.3) fL RDW Coeff of Fede (11.5-14.5) % Plt Count (130-400) K/uL MPV (9.4-12.4) fL Immature Gran % (Auto) % Neut % (Auto) % Lymph % (Auto) % [place] % (Auto) % Eos % (Auto) % Baso % (Auto) % Neut # (Auto) (1.40-6.50) K/uL Lymph # (Auto) (1.2-3.4) K/uL [place] # (Auto) (0.11-0.59) K/uL Eos # (Auto) (0-0.50) K/uL Baso # (Auto) (0-0.2) K/uL Immature Gran # (Auto) (0.01-0.20) K/uL PT (9.0-12.0) Seconds INR (0.9-1.1) APTT (21.0-31.0) Seconds PTT Ratio D-Dimer (0-500) ug/L FEU Sodium (136-145) mmol/L Potassium (3.5-5.1) mmol/L Chloride (98-107) mmol/L Carbon Dioxide (21-32) mmol/L Anion Gap (3-11) BUN (6-23) mg/dl Creatinine (0.6-1.2) mg/dl Est Cr Clr Drug Dosing ml/min Est GFR ( Amer) ml/min Est GFR (Non-Af Amer) ml/min BUN/Creatinine Ratio (10-20) Glucose (70-99(Fasting)) mg/dl Calcium (8.6-10.3) mg/dl Total Bilirubin (0.2-1.0) mg/dl AST (13-39) U/L ALT (7-52) U/L Alkaline Phosphatase (34-104) U/L Troponin I High Sens (0-14) pg/ml Total Protein (6.0-8.3) gm/dl Albumin (3.4-5.0) gm/dl Globulin (2.5-4.0) gm/dl Albumin/Globulin Ratio (0.9-2) Urine Color Yellow Urine Appearance Clear (Clear) Urine pH 6.5 (4.5-7.5) Ur Specific Huddy 1.017 (1.000-1.030) Urine Protein Trace H (Negative) Urine Glucose (UA) Negative (Negative) Urine Ketones Negative (Negative) Urine Blood 3+ H (Negative) Urine Nitrite Negative (Negative) Urine Bilirubin Negative (Negative) Urine Urobilinogen Negative (Negative) Ur Leukocyte Esterase 1+ H (Negative) Urine WBC (Auto) 5-10 H (0-5) /hpf Urine RBC (Auto) >30 H (0-4) /hpf U Hyaline Cast (Auto) 0 (0-5) /lpf U Epithel Cells (Auto) 20-30 H (0-5) /lpf Urine Bacteria (Auto) Negative (Negative) Imaging Data My Impression: CXR per my interpretation without focal consolidation, pneumothorax or pleural effusion Radiologist's Impression: Chest X-Ray 10/30/22 13:44 XR chest 1V portable CLINICAL HISTORY: TECHNIQUE: Single frontal radiograph of the chest was obtained. Comparison: None available at the time of this dictation. FINDINGS: No lines and tubes are seen. The cardiomediastinal silhouette is normal. The lungs are clear. No evidence of pleural effusion or pneumothorax. IMPRESSION: No acute chest disease. ACT 112: Negative or not required by law. Electronically signed by: Zechariah Botello M.D. 10/30/2022 2:20 PM Chest CTA 10/30/22 15:37 CT angio chest PE protocol CLINICAL HISTORY: PE TECHNIQUE: Multidetector row helical CT of the chest was performed with angiographic protocol. Coronal and sagittal reformations were obtained. Coronal and sagittal MIPS were obtained from the axial data set and were submitted for review. Automated dose lowering techniques and/or adjustment according to patient size were utilized for this exam. CT DOSE: 892.35 mGy.cm Comparison: Comparison is made to chest radiograph 10/30/2022 FINDINGS: Lungs and pleura: Normal. Heart and pericardium: Heart size is normal. No pericardial effusion. Vessels: Evaluation for pulmonary embolism is limited due to suboptimal contrast timing. No evidence of central or lobar embolus. Mediastinum and arline: Unremarkable. Chest wall and lower neck: Unremarkable. Abdomen: Unremarkable. Bones: Degenerative changes in the thoracic spine. IMPRESSION: Limited exam with no evidence of central or lobar pulmonary embolus. ACT 112: Negative or not required by law. Electronically signed by: Zechariah Botello M.D. 10/30/2022 4:39 PM MDM Narrative 22-year-old female who is 3 weeks presents to the emergency department for evaluation of midthoracic back pain bilaterally. Review of pertinent visits and past medical history performed. Vital signs in ED demonstrate hypertension as well as mild tachycardia otherwise within normal limits, afebrile. Patient hydrated with 1 L IV fluids. On exam, patient is nontoxic-appearing in no acute distress. Respirations nonlabored and maintaining normal O2 saturations on room air. Lungs CTA. She has reproducible mild tenderness in the mid thoracic paraspinal muscles bilaterally. Abdomen is benign. IV access was established and labs were obtained. CBC without leukocytosis or acute anemia. CMP without significant electrolyte abnormalities. Renal function within normal limits. Transaminitis with AST of 141, ALT 175 and alk phos 217. Total bilirubin of 1. Lipase unremarkable. Coags within normal limits. D-dimer was performed given pleuritic symptoms and was elevated at 700. CTA to r/o PE was therefore performed and negative. Uri nalysis demonstrates trace protein. Case was discussed with FINISHING PAN OPERATOR, Dr. Lopez, for transaminitis in as well as elevated BP. There is concern for pre-eclampsia in and recommended admission to hospital for further evaluation and workup. Dr. Lopez came to evaluate patient at bedside, please see her note for further details. Upon reevaluation, patient remained stable with no new concerns. She was updated on all exam findings and test results as well as recommendations from Precious Lopez. Patient is agreeable for admission for further evaluation and management of possible preeclampsia in pp. she did not require any pain or nausea medications while here in the ED. Patient was admitted to labor and delivery unit on Dr. Lopez's service in stable condition. Case was discussed with ED attending Dr. Dial, who agrees with work-up and treatment plan Impression & Plan Pre-eclampsia in period, Acute thoracic back pain, Dyspnea, Transaminitis, Hypertension Discharge Plan Visit Data Chief Complaint: Illness Stated Complaint: 3 WEEKS POST , BACK SPASMS ED Provider: Arik Dial ED Midlevel Provider: Katie Wyatt Discharge Problem: Pre-eclampsia in period, Acute thoracic back pain, Dyspnea, Transa minitis, Hypertension Patient Disposition: Admitted As Inpatient Discharge Instructions Interventions: ED Discharge Assessment Last Done: 10/30/22 19:51
[2022-10-30 14:08] LABS: Albumin Globulin Ratio 1.7 (0.9-2); BUN Creatinine Ratio 13.4 (10-20); Creatinine Clr Calc Pharmacy 121.6 ml/min; Est GFR (African American) 94.7 ml/min; Est GFR (Non-African American) 81.7 ml/min; Potassium 4.1 mmol/L (3.5-5.1)
--- NOTE | 2022-10-30 14:21 | XRay Report ---
XR chest 1V portable CLINICAL HISTORY: TECHNIQUE: Single frontal radiograph of the chest was obtained. Comparison: None available at the time of this dictation. FINDINGS: No lines and tubes are seen. The cardiomediastinal silhouette is normal. The lungs are clear. No evid ence of pleural effusion or pneumothorax. IMPRESSION: No acute chest disease. ACT 112: Negative or not required by law. Electronically signed by: Zechariah Botello M.D. 10/30/2022 2:20 PM
[2022-10-30 14:49] LABS: Troponin I High Sensitivity 3.2 pg/ml (0-14)
[2022-10-30 15:33] LABS: INR 0.9 (0.9-1.1); Partial Thromboplastin Ratio 0.9; Partial Thromboplastin Time 26.6 Seconds (21.0-31.0); Prothrombin Time 10.4 Seconds (9.0-12.0)
[2022-10-30 15:35] LABS: D Dimer 700 ug/L FEU (0-500)
[2022-10-30] MEDS ORDERED: OPTIRAY 320 125ml IV ONE (15:58)
[2022-10-30 16:02] LABS: Appearance Urine Clear (Clear); Bacteria Urine Automated Negative (Negative); Bilirubin Urine Negative (Negative); Blood Urine 3+ (Negative); Cast Urine Automated 0 /lpf (0-5); Color Urine Yellow; Epithelial Cell Urine Auto 20-30 /lpf (0-5); Glucose Urine UA Negative (Negative); Ketones Urine Negative (Negative); Leukocyte Esterase Urine 1+ (Negative); Nitrite Urine Negative (Negative); Protein Urine Trace (Negative); RBC Urine Automated >30 /hpf (0-4); Specific Gravity Urine 1.017 (1.000-1.030); Urobilinogen Urine Negative (Negative); pH Urine 6.5 (4.5-7.5)
[2022-10-30] MEDS ORDERED: MAG SULFATE 4GM BOLUS FROM BAG IV ONE (16:35)
--- NOTE | 2022-10-30 16:40 | CT Scan Report ---
CT angio chest PE protocol CLINICAL HISTORY: PE TECHNIQUE: Multidetector row helical CT of the chest was performed with angiographic protocol. Groves l and sagittal reformations were obtained. Coronal and sagittal MIPS were obtained from the axial mainor a set and were submitted for review. Automated dose lowering techniques and/or adjustment according to patient size were utilized for this exam. CT DOSE: 892.35 mGy.cm Comparison: Comparison is made to chest radiograph 10/30/2022 FINDINGS: Lungs and pleura: Normal. Heart and pericardium: Heart size is normal. No pericardial effusion. Vessels: Evaluation for pulmonary embolism is limited due to suboptimal contrast timing. No evidence of central or lobar embolus. Mediastinum and arline: Unremarkable. Chest wall and lower neck: Unremarkable. Abdomen: Unremarkable. Bones: Degenerative changes in the thoracic spine. IMPRESSION: Limited exam with no evidence of central or lobar pulmonary embolus. ACT 112: Negative or not required by law. Electronically signed by: Zechariah Botello M.D. 10/30/2022 4:39 PM
--- NOTE | 2022-10-30 16:44 | History & Physical Report ---
Date of Service October 30, 2022 Assessment & Plan (1) Pre-eclampsia, : Plan Discussed with patient her evaluation thus far and concern for above dx. She does not have any symptoms and BPs mild range but elevated. Elevated lfts could also be due to other etiologies like gb or med related. Will get RUQ u/s. Patient denies pain in that area or pain with eating or n/v. Therefore, would rec treatment for pp preeclampsia, monitor labs and bps, trt with magenesium seizure prophylaxis. Patient agrees. L&D aware. ER provider aware. History of Present Illness Chief Complaint: preeclampsia Primary Care Provider: Jamia Wagner PA-C 22yo now about 3wk pp from c/s and elevated bps and elevated lfts concerning for preeclampsia pp. Patient came to ER noting upper back pain, mid thoracic pain and presented to ER. Called by provider in ER that they were evaluating pt for PE(neg cxr/neg CTA), but pain came and went and seemed musculoskeletal but upon evaluation of labs, noted markedly elevated lfts and bps 140-160/88. She has trace protein in urine. Denies garcía, visual change, ruq pain, epig pain. No worsening swelling. Her back pain is better right now. No pain but says she is worried her anxiety is causing her bp elevation. No current sob. Bottle feeding her baby who is doing well. Allergies Allergy/AdvReac Type Severity Reaction Status Date / Time No Known Allergies Allergy Verified 10/30/22 15:09 Home Medications Medication Instructions Recorded Confirmed Type escitalopram oxalate 10 mg tablet 10 mg PO DAILY 04/16/21 10/30/22 History prenat.vits,stephan,[id number] 1 tab PO DAILY 08/27/21 10/30/22 History betamethasone dipropionate 0.05 % 1 applic topical BID PRN flare ups 03/26/22 10/30/22 History lotion levothyroxine 150 mcg tablet 150 mcg PO DAILY #30 tabs 08/05/22 10/30/22 Rx docusate sodium 100 mg capsule 100 mg PO DAILY PRN Constipation 10/30/22 10/30/22 History (Colace) naproxen sodium 220 mg tablet 220 mg PO Q12H PRN Pain 10/30/22 10/30/22 History (Aleve) Patient History Medical History Anxiety Hypothyroidism Missed Surgical History No significant past surgical history Family History Grandfather (Maternal) Hypertension Parkinson disease Aunt Hypothyroid Denies family history of Ovarian cancer Breast cancer Lung cancer Colorectal cancer Social History Smoking Status: Never smoker Do You Dip or Chew Tobacco: No; Hx Alcohol Use: No Hx Substance Use: No Preferred Language: Serbian Communication Ability: Effective [employer] Required: No Beliefs That Will Affect Care: None marital status: marital status details: Olvin (23) [phone] Current Living Situation: Spouse Current Living Situation Comment: FOB and 3 dogs current occupational status: unemployed current occupation: manage rental properties. How many Children do You have: 0 Feels Safe at Home: Yes Assistive Devices: None Review of Systems as per Subjective / HPI Physical Exam Constitutional: WD/WN, vitals as above Respiratory: normal respiratory effort, lungs clear to auscultation Cardiovascular: Rate/Rhythm: regular rate and regular rhythm Gastrointestinal (Abdomen): soft, no ruq pain, no epig tenderness. Musculoskeletal: no edema nontender calves Neurologic: dtrs +3. no clonus. Psychiatric: A+Ox3, euthymic affect Results & Data Vital Signs (Past 12 Hours) Vital Signs Temp Pulse Pulse Resp BP BP Pulse Ox 10/30/22 13:30 141/84 H 10/30/22 14:30 78 22 142/88 H 10/30/22 13:44 96 H 10/30/22 13:06 97.2 F L 97 H 20 163/88 H 98 Coding Level of Care Code INP/OBS EV SAME DAY LV 2,70MIN Diagnoses Pre-eclampsia, O14.95
[2022-10-30] MEDS: MAGNESIUM SULFATE / WTR 40 GM/1,000 ML BAG IV SCH (17:02)
[2022-10-30] MEDS: LACTATED RINGER'S 1,000 ML IV PRN (20:06)
[2022-10-30 20:40] LABS: Albumin Globulin Ratio 1.8 (0.9-2); Albumin Level 4.7 gm/dl (3.4-5.0); BUN Creatinine Ratio 12.2 (10-20); Bilirubin Direct 0.8 mg/dl (0-0.2); Bilirubin,Total 1.3 mg/dl (0.2-1.0); Calcium 9.1 mg/dl (8.6-10.3); Creatinine Clr Calc Pharmacy 143.8 ml/min; Est GFR (African American) 116.1 ml/min; Est GFR (Non-African American) 100.2 ml/min; Globulin 2.6 gm/dl (2.5-4.0); Potassium 3.8 mmol/L (3.5-5.1); Total Protein 7.3 gm/dl (6.0-8.3)
--- NOTE | 2022-10-30 21:31 | Communication Note ---
Date of Service: October 30, 2022 spoke to pt about results of 730pm labs. lfts more elevated. no recent illness. no n/v. no pain in ruq or with eating. some diarrhea with colace but that has been ongoing since delivery. no significant use of tylenol or nsaids in past few days. recheck labs in about 6hr and will check hepatitis panel. still waiting for ruq u/s to be done. nursing has contacted u/s and they are aware pt has been NPO.
--- NOTE | 2022-10-30 22:11 | Ultrasound Report ---
ULTRASOUND RIGHT UPPER QUADRANT ABDOMEN CLINICAL HISTORY: Elevated hepatic transaminases. COMPARISON STUDY: No priors. TECHNIQUE: Real-time, grayscale, and color flow sonography of the right upper quadrant of the abdomen was performed. Images are reviewed in the transverse and longitudinal planes. FINDINGS: Liver: The liver is normal in size and echotexture. There is no intrahepatic biliary ductal dilatatio n. The main portal vein is patent. Gallbladder: The gallbladder is contracted and filled with shadowing gallstones. There is no gallblad maverick wall thickening or pericholecystic fluid. A sonographic Dixon's sign is reportedly absent. The c ommon bile duct measures up to 0.4 cm in diameter. Pancreas: Visualized portions of the pancreatic head are normal in appearance. The majority of the pa ncreas was obscured by overlying bowel gas. Right kidney: Survey images of the right kidney demonstrate normal size and echotexture. There is no hydronephrosis. Ascites: None. IMPRESSION: 1. The gallbladder is contracted and filled with shadowing gallstones. There is no sonographic eviden ce of acute cholecystitis. 2. No intra or extrahepatic biliary ductal dilatation is seen. ACT 112: Negative or not required by law. Electronically signed by: Karan Cruz M.D. 10/30/2022 10:08 PM
[2022-10-31 01:47] LABS: Hemoglobin 12.2 g/dl (12.0-16.0); Mean Corpuscular Hemoglobin 29.5 pg (25.0-34.0); Mean Corpuscular Hgb Conc 33.9 g/dL (32.0-36.0); Mean Corpuscular Volume 87.2 fL (80.0-100.0); Mean Platelet Volume 10.4 fL (9.4-12.4); Platelet Count 290 K/uL (130-400); RDW Standard Deviation 38.7 fL (36.4-46.3); Red Blood Count 4.13 M/uL (4.20-5.40); White Blood Count 5.41 K/ul (4.8-10.8)
[2022-10-31 01:56] LABS: Albumin Globulin Ratio 1.8 (0.9-2); Albumin Level 4.2 gm/dl (3.4-5.0); BUN Creatinine Ratio 9.3 (10-20); Bilirubin Direct 0.3 mg/dl (0-0.2); Bilirubin,Total 0.7 mg/dl (0.2-1.0); Calcium 7.8 mg/dl (8.6-10.3); Creatinine Clr Calc Pharmacy 136.9 ml/min; Est GFR (African American) 109.6 ml/min; Est GFR (Non-African American) 94.6 ml/min; Globulin 2.4 gm/dl (2.5-4.0); Potassium 3.7 mmol/L (3.5-5.1); Total Protein 6.6 gm/dl (6.0-8.3)
[2022-10-31 08:16] LABS: Hematocrit (blood only) 36.9 % (37.0-47.0); Hemoglobin 12.5 g/dl (12.0-16.0); Mean Corpuscular Hgb Conc 33.9 g/dL (32.0-36.0); Mean Corpuscular Volume 85.6 fL (80.0-100.0); Mean Platelet Volume 10.5 fL (9.4-12.4); Platelet Count 324 K/uL (130-400); RDW Coefficient of Variation 12.2 % (11.5-14.5); RDW Standard Deviation 38.1 fL (36.4-46.3); Red Blood Count 4.31 M/uL (4.20-5.40); White Blood Count 5.81 K/ul (4.8-10.8)
[2022-10-31] MEDS: LACTATED RINGER'S 1,000 ML IV PRN (08:22)
--- NOTE | 2022-10-31 08:30 | Obstetrical Progress Note ---
Date of Service October 31, 2022 Assessment & Plan (1) Pre-eclampsia in period: (2) Gallstones: (3) Elevated transaminase level: Plan will cont magnesium trt. no s/sx preeclampsia. bps normal. great urine output. ?suspect gallstones related to LFTs as possibility. will await labs from this am. will likely need to f/u with pcp as outpt. pt made aware. Admission and Anticipated Discharge Date Admission Date: October 30, 2022 Subjective doing well this am. sitting by bedside. eating. barkley with good output. no garcía or visual change or ruq pain. aware of gb u/s results. never has pain. Review of Systems Constitutional: as per Subjective / HPI Physical Exam Constitutional: WD/WN, vitals as above Respiratory: normal respiratory effort, lungs clear to auscultation Cardiovascular: Rate/Rhythm: regular rate and regular rhythm Gastrointestinal (Abdomen): Inspection/Auscultation: abdomen normal to inspection Percussion/Palpation: abdomen soft; abdomen nontender Musculoskeletal: nt calves [] edema Neurologic: DTRs +2 no clonus Psychiatric: A+Ox3, euthymic affect Results & Data Vital Signs (Past 12 Hours) Vital Signs Temp Pulse Resp BP Pulse Ox O2 Del Method 10/31/22 07:10 20 10/31/22 07:10 98.8 F 20 10/31/22 06:00 14 10/31/22 05:21 14 10/31/22 04:00 97.9 F 16 10/31/22 04:00 16 10/31/22 03:00 18 10/31/22 02:00 15 10/31/22 01:00 16 10/31/22 00:00 97.9 F 18 Room Air 10/30/22 23:00 16 10/30/22 22:00 16 10/30/22 21:00 18 10/31/22 08:22 85 100 10/31/22 08:17 100 10/31/22 08:17 93 H 10/31/22 08:17 93 H 89 L 10/31/22 08:12 84 100 10/31/22 08:10 81 122/68 10/31/22 08:07 93 H 100 10/31/22 08:02 78 100 10/31/22 07:57 76 95 10/31/22 07:52 80 97 10/31/22 07:47 79 98 10/31/22 07:42 83 99 10/31/22 07:37 93 H 100 10/31/22 07:32 78 95 10/31/22 07:27 82 97 10/31/22 07:26 81 93 10/31/22 07:22 82 94 10/31/22 07:21 83 94 10/31/22 07:17 85 98 10/31/22 07:12 84 96 10/31/22 07:10 88 127/72 10/31/22 07:07 93 H 99 10/31/22 07:02 98 10/31/22 07:02 91 H 10/31/22 07:02 84 93 10/31/22 06:57 77 95 10/31/22 06:55 80 94 10/31/22 06:52 91 H 97 10/31/22 06:47 82 96 10/31/22 06:42 72 96 10/31/22 06:37 95 10/31/22 06:37 74 10/31/22 06:37 76 94 10/31/22 06:32 75 94 10/31/22 06:31 75 94 10/31/22 06:27 74 95 10/31/22 06:26 76 94 10/31/22 06:22 72 95 10/31/22 06:20 74 94 10/31/22 06:17 76 95 10/31/22 06:12 79 97 10/31/22 06:10 90 129/72 10/31/22 06:07 73 96 10/31/22 06:02 68 96 10/31/22 05:57 63 94 10/31/22 05:55 65 94 10/31/22 05:52 68 96 10/31/22 05:49 66 92 10/31/22 05:47 65 96 10/31/22 05:42 64 95 10/31/22 05:43 63 94 10/31/22 05:37 63 95 10/31/22 05:32 68 95 10/31/22 05:30 70 93 10/31/22 05:27 68 96 10/31/22 05:22 68 96 10/31/22 05:18 70 94 10/31/22 05:17 70 95 10/31/22 05:12 79 95 10/31/22 05:10 101 H 136/80 10/31/22 05:07 96 10/31/22 05:07 82 10/31/22 05:07 73 94 10/31/22 05:02 97 10/31/22 05:02 73 10/31/22 05:02 72 94 10/31/22 04:57 75 96 10/31/22 04:52 78 94 10/31/22 04:49 80 93 10/31/22 04:47 76 95 10/31/22 04:42 90 98 10/31/22 04:37 71 96 10/31/22 04:32 71 96 10/31/22 04:29 71 94 10/31/22 04:27 79 94 10/31/22 04:24 78 93 10/31/22 04:22 88 96 10/31/22 04:17 78 96 10/31/22 04:12 79 96 10/31/22 04:10 90 124/64 10/31/22 04:07 72 95 10/31/22 04:02 68 97 10/31/22 03:57 70 97 10/31/22 03:52 70 96 10/31/22 03:47 68 96 10/31/22 03:42 76 96 10/31/22 03:41 77 94 10/31/22 03:37 73 96 10/31/22 03:32 71 95 10/31/22 03:27 72 96 10/31/22 03:22 73 97 10/31/22 03:17 70 97 10/31/22 03:12 68 98 10/31/22 03:10 75 125/67 10/31/22 03:07 66 97 10/31/22 03:02 69 99 10/31/22 02:57 70 98 10/31/22 02:52 74 100 10/31/22 02:47 77 100 10/31/22 02:42 77 100 10/31/22 02:38 88 93 10/31/22 02:37 84 97 10/31/22 02:32 77 99 10/31/22 02:27 97 H 100 10/31/22 02:22 71 98 10/31/22 02:17 83 97 10/31/22 02:12 94 H 100 10/31/22 02:10 79 121/67 10/31/22 02:07 68 97 10/31/22 02:02 63 95 10/31/22 01:57 63 97 10/31/22 01:52 60 98 10/31/22 01:47 76 100 10/31/22 01:42 70 99 10/31/22 01:37 67 100 10/31/22 01:32 77 100 10/31/22 01:27 75 100 10/31/22 01:22 65 96 10/31/22 01:17 63 97 10/31/22 01:14 77 93 10/31/22 01:12 85 99 10/31/22 01:10 77 121/61 10/31/22 01:07 62 96 10/31/22 01:02 61 96 10/31/22 00:57 61 95 10/31/22 00:52 64 95 10/31/22 00:51 63 94 10/31/22 00:47 62 94 10/31/22 00:42 60 94 10/31/22 00:37 59 L 94 10/31/22 00:32 57 L 94 10/31/22 00:30 58 L 94 10/31/22 00:27 55 L 95 10/31/22 00:24 55 L 94 10/31/22 00:22 55 L 95 10/31/22 00:18 58 L 94 10/31/22 00:17 53 L 95 10/31/22 00:12 60 95 10/31/22 00:13 57 L 94 10/31/22 00:10 63 126/66 10/31/22 00:07 55 L 95 10/31/22 00:02 92 10/31/22 00:02 64 10/31/22 00:02 64 94 10/30/22 23:57 97 H 100 10/30/22 23:52 61 96 10/30/22 23:50 61 92 10/30/22 23:47 63 96 10/30/22 23:44 64 94 10/30/22 23:42 56 L 96 10/30/22 23:37 59 L 96 10/30/22 23:32 56 L 96 10/30/22 23:27 56 L 97 10/30/22 23:22 56 L 98 10/30/22 23:17 59 L 99 10/30/22 23:12 65 98 10/30/22 23:10 65 140/77 10/30/22 23:07 60 100 10/30/22 23:02 66 100 10/30/22 22:57 64 98 10/30/22 22:52 68 100 10/30/22 22:47 73 100 10/30/22 22:42 56 L 98 10/30/22 22:37 53 L 98 10/30/22 22:32 56 L 98 10/30/22 22:27 54 L 99 10/30/22 22:22 60 99 10/30/22 22:17 77 100 10/30/22 22:12 68 140/74 100 10/30/22 22:07 62 97 10/30/22 22:02 58 L 98 10/30/22 21:57 59 L 99 10/30/22 21:52 58 L 99 10/30/22 21:47 64 97 10/30/22 21:42 67 100 10/30/22 21:37 62 100 10/30/22 21:32 61 97 10/30/22 21:27 62 100 10/30/22 21:22 63 99 10/30/22 21:17 64 100 10/30/22 21:12 77 100 10/30/22 21:10 58 L 132/76 10/30/22 21:07 62 99 10/30/22 21:02 64 99 10/30/22 20:57 63 100 10/30/22 20:52 62 99 10/30/22 20:47 60 100 10/30/22 20:42 60 100 10/30/22 20:37 66 97 10/30/22 20:32 63 99 PG Care Time/CCT Total # of Minutes Spent Total Time Spent with Patient: Total time spent is greater than 50% in coordination of care (as documented) at patient's floor/unit and/or counseling patient: Coding Level of Care Code 81461 SUB INP/OBS CARE 25MIN Diagnoses Pre-eclampsia in period O14.95 Gallstones K80.20 Elevated transaminase level R74.01
[2022-10-31 08:37] LABS: Albumin Globulin Ratio 1.8 (0.9-2); Albumin Level 4.3 gm/dl (3.4-5.0); BUN Creatinine Ratio 8.4 (10-20); Bilirubin Direct 0.1 mg/dl (0-0.2); Bilirubin,Total 0.5 mg/dl (0.2-1.0); Calcium 7.3 mg/dl (8.6-10.3); Creatinine Clr Calc Pharmacy 141.8 ml/min; Est GFR (African American) 114.4 ml/min; Est GFR (Non-African American) 98.7 ml/min; Globulin 2.4 gm/dl (2.5-4.0); Potassium 3.8 mmol/L (3.5-5.1); Total Protein 6.7 gm/dl (6.0-8.3)
[2022-10-31 09:58] LABS: Basophils # (auto) 0.03 K/uL (0-0.2); Basophils % (auto) 0.5 %; Eosinophils # (auto) 0.06 K/uL (0-0.50); Eosinophils % (auto) 0.9 %; Hematocrit (blood only) 37.5 % (37.0-47.0); Hemoglobin 12.7 g/dl (12.0-16.0); Immature Granulocytes # (auto) 0.03 K/uL (0.01-0.20); Immature Granulocytes % (auto) 0.5 %; Lymphocytes # (auto) 1.23 K/uL (1.2-3.4); Lymphocytes % (auto) 18.8 %; Mean Corpuscular Hemoglobin 29.5 pg (25.0-34.0); Mean Corpuscular Hgb Conc 33.9 g/dL (32.0-36.0); Mean Corpuscular Volume 87.2 fL (80.0-100.0); Mean Platelet Volume 10.5 fL (9.4-12.4); Monocytes # (auto) 0.32 K/uL (0.11-0.59); Monocytes % (auto) 4.9 %; Neutrophils # (auto) 4.86 K/uL (1.40-6.50); Neutrophils % (auto) 74.4 %; Platelet Count 320 K/uL (130-400); RDW Coefficient of Variation 12.1 % (11.5-14.5); RDW Standard Deviation 38.8 fL (36.4-46.3); White Blood Count 6.53 K/ul (4.8-10.8)
[2022-10-31 10:11] LABS: Albumin Globulin Ratio 1.8 (0.9-2); Albumin Level 4.5 gm/dl (3.4-5.0); BUN Creatinine Ratio 7.5 (10-20); Bilirubin,Total 0.5 mg/dl (0.2-1.0); Calcium 7.4 mg/dl (8.6-10.3); Creatinine Clr Calc Pharmacy 126.6 ml/min; Est GFR (African American) 99.7 ml/min; Globulin 2.5 gm/dl (2.5-4.0); Potassium 3.7 mmol/L (3.5-5.1)
[2022-10-31] MEDS: IBUPROFEN 600 MG TAB PO PRN ×2 (11:03→17:12)
--- NOTE | 2022-10-31 12:12 | Electrocardiogram Report ---
Test Reason : Blood Pressure : / mmHG Vent. Rate : 096 BPM Atrial Rate : 096 BPM P-R Int : 136 ms QRS Dur : 086 ms QT Int : 348 ms P-R-T Axes : 042 042 027 degrees QTc Int : 439 ms Normal sinus rhythm Nonspecific ST abnormality Abnormal ECG No previous ECGs available Confirmed by Vladimir Avila ([id number]) on 10/31/2022 12:11:30 PM Referred By: REFERRED SELF Confirmed By:Byron Avila
[2022-10-31] MEDS: MAGNESIUM SULFATE / WTR 40 GM/1,000 ML BAG IV SCH (13:16)
[2022-10-31 15:20] LABS: Basophils # (auto) 0.03 K/uL (0-0.2); Basophils % (auto) 0.4 %; Eosinophils # (auto) 0.03 K/uL (0-0.50); Eosinophils % (auto) 0.4 %; Hematocrit (blood only) 38.1 % (37.0-47.0); Hemoglobin 12.8 g/dl (12.0-16.0); Immature Granulocytes # (auto) 0.03 K/uL (0.01-0.20); Immature Granulocytes % (auto) 0.4 %; Lymphocytes # (auto) 1.57 K/uL (1.2-3.4); Lymphocytes % (auto) 21.3 %; Mean Corpuscular Hemoglobin 29.5 pg (25.0-34.0); Mean Corpuscular Hgb Conc 33.6 g/dL (32.0-36.0); Mean Corpuscular Volume 87.8 fL (80.0-100.0); Mean Platelet Volume 10.5 fL (9.4-12.4); Monocytes # (auto) 0.37 K/uL (0.11-0.59); Neutrophils # (auto) 5.35 K/uL (1.40-6.50); Neutrophils % (auto) 72.5 %; Platelet Count 326 K/uL (130-400); RDW Coefficient of Variation 12.1 % (11.5-14.5); RDW Standard Deviation 39.4 fL (36.4-46.3); Red Blood Count 4.34 M/uL (4.20-5.40); White Blood Count 7.38 K/ul (4.8-10.8)
[2022-10-31 15:27] LABS: Albumin Globulin Ratio 1.8 (0.9-2); Albumin Level 4.5 gm/dl (3.4-5.0); BUN Creatinine Ratio 8.5 (10-20); Bilirubin,Total 0.5 mg/dl (0.2-1.0); Calcium 7.1 mg/dl (8.6-10.3); Creatinine Clr Calc Pharmacy 125.2 ml/min; Est GFR (African American) 98.4 ml/min; Est GFR (Non-African American) 84.9 ml/min; Globulin 2.5 gm/dl (2.5-4.0); Potassium 3.8 mmol/L (3.5-5.1)
[2022-10-31] MEDS ORDERED: DOCUSATE SODIUM 100 MG CAP PO PRN (16:32)
--- NOTE | 2022-10-31 18:57 | Gynecologic Progress Note ---
Date of Service October 31, 2022 Assessment & Plan (1) Pre-eclampsia in period: Plan: We reviewed her preeclampsia blood work and the liver transaminases continue to trend downward. We did draw a acetaminophen level which was less than 3. Even though her Tylenol intake did not exceed the recommended 24-hour dosing, she may be sensitive to frequent and regular dosing of this medication. She did have elevated transaminases with an antifungal in the past. Her blood pressures have remained in the normotensive range during her hospital stay. I suspect that her upper back pain was muscular skeletal as stretching and massage relieved the discomfort. And her work-up for cholecystitis and pulmonary embolus were negative. She does have gallstones but no evidence of active disease. Patient is aware of the presence in case she does develop symptoms of cholecystitis. We will discharge her to home after reviewing preeclampsia symptoms for which she should call if they should occur. We will have her follow-up with her primary care physician who she is hoping to establish care with the [facility] at the [place] office. Admission and Anticipated Discharge Date Admission Date: October 30, 2022 Subjective Patient has not experienced any further episodes of upper back pain. Further investigation, these episodes of pain occurred several times over 3 days with no episodes lasting more than approximately 10 minutes. Seem to be related to changes in her posture in an effort to be comfortable since she has had her section. The back pain was relieved by doing stretches of the upper back and and massage. She does relate that she has been taking Tylenol 1000 mg every 8 hours alternating with Aleve 440 mg every 8 hours since her section. She had not been taking the Percocet because it made her very sleepy. Of note she had elevated transaminases following treatment with an antifungal agent orally in the past. She has had no symptoms of preeclampsia since her admission. Review of Systems Review of Systems: All systems reviewed & are unremarkable except as noted in HPI & below Physical Exam Constitutional: WD/WN, vitals as above Gastrointestinal (Abdomen): Inspection/Auscultation: + abdominal surgical incision (dry and intact- no cellulitis) Musculoskeletal: spine is non-tender - no masses or tenderness in upper back muscles Psychiatric: A+Ox3, euthymic affect Results & Data Vital Signs (Past 12 Hours) Vital Signs Temp Pulse Resp BP Pulse Ox 10/31/22 15:00 20 10/31/22 14:00 20 10/31/22 13:00 20 10/31/22 12:00 18 10/31/22 11:00 18 10/31/22 10:00 18 10/31/22 09:00 20 10/31/22 08:15 20 10/31/22 07:10 20 10/31/22 07:10 98.8 F 20 10/31/22 15:46 78 99 10/31/22 15:41 79 99 10/31/22 15:36 79 98 10/31/22 15:31 83 97 10/31/22 15:22 79 100 10/31/22 15:17 79 100 10/31/22 15:12 84 100 10/31/22 15:11 98.1 F 82 20 129/70 10/31/22 15:07 78 100 10/31/22 15:02 75 100 10/31/22 14:57 77 100 10/31/22 14:52 79 100 10/31/22 14:47 84 100 10/31/22 14:42 88 100 10/31/22 14:37 86 100 10/31/22 14:32 89 100 10/31/22 14:27 79 100 10/31/22 14:22 84 100 10/31/22 14:17 80 100 10/31/22 14:12 93 H 100 10/31/22 14:13 86 140/79 10/31/22 14:07 93 H 99 10/31/22 14:02 71 99 10/31/22 13:57 69 98 10/31/22 13:52 70 97 10/31/22 13:47 68 98 10/31/22 13:42 72 99 10/31/22 13:37 73 99 10/31/22 13:32 72 99 10/31/22 13:27 72 100 10/31/22 13:22 76 99 10/31/22 13:17 77 100 10/31/22 13:12 81 100 10/31/22 13:10 83 137/75 10/31/22 13:07 78 98 10/31/22 13:02 75 100 10/31/22 12:57 77 100 10/31/22 12:52 72 100 10/31/22 12:47 74 100 10/31/22 12:42 74 100 10/31/22 12:37 80 100 10/31/22 12:32 83 100 10/31/22 12:27 93 H 100 10/31/22 12:22 101 H 100 10/31/22 12:17 86 100 10/31/22 12:12 77 100 10/31/22 12:10 80 121/66 10/31/22 12:07 90 100 10/31/22 12:02 68 99 10/31/22 11:57 70 100 10/31/22 11:52 69 100 10/31/22 11:47 68 99 10/31/22 11:42 69 100 10/31/22 11:37 68 99 10/31/22 11:32 69 99 10/31/22 11:27 66 99 10/31/22 11:22 71 99 10/31/22 11:17 78 100 10/31/22 11:12 73 100 10/31/22 11:10 97.9 F 72 20 119/67 10/31/22 11:07 74 100 10/31/22 11:02 81 99 10/31/22 10:57 76 99 10/31/22 10:52 76 98 10/31/22 10:47 77 97 10/31/22 10:42 85 100 10/31/22 10:37 77 100 10/31/22 10:32 87 100 10/31/22 10:27 93 H 100 10/31/22 10:22 75 97 10/31/22 10:17 70 98 10/31/22 10:12 72 98 10/31/22 10:10 79 121/70 10/31/22 10:07 74 98 10/31/22 10:02 81 100 10/31/22 09:57 87 100 10/31/22 09:52 77 100 10/31/22 09:47 83 100 10/31/22 09:42 84 100 10/31/22 09:37 83 100 10/31/22 09:32 80 100 10/31/22 09:27 83 100 10/31/22 09:22 81 100 10/31/22 09:17 86 100 10/31/22 09:12 87 100 10/31/22 09:10 91 H 134/80 10/31/22 09:07 89 100 10/31/22 09:02 81 100 10/31/22 08:57 91 H 100 10/31/22 08:52 85 100 10/31/22 08:47 84 100 10/31/22 08:42 90 100 10/31/22 08:37 89 100 10/31/22 08:32 87 100 10/31/22 08:27 87 100 10/31/22 08:22 85 100 10/31/22 08:17 100 10/31/22 08:17 93 H 10/31/22 08:17 93 H 89 L 10/31/22 08:12 84 100 10/31/22 08:10 81 122/68 10/31/22 08:07 93 H 100 10/31/22 08:02 78 100 10/31/22 07:57 76 95 10/31/22 07:52 80 97 10/31/22 07:47 79 98 10/31/22 07:42 83 99 10/31/22 07:37 93 H 100 10/31/22 07:32 78 95 10/31/22 07:27 82 97 10/31/22 07:26 81 93 10/31/22 07:22 82 94 10/31/22 07:21 83 94 10/31/22 07:17 85 98 10/31/22 07:12 84 96 10/31/22 07:10 88 127/72 10/31/22 07:07 93 H 99 10/31/22 07:02 98 10/31/22 07:02 91 H 10/31/22 07:02 84 93 10/31/22 06:57 77 95 10/31/22 06:55 80 94 10/31/22 06:52 91 H 97 PG Care Time/CCT Total # of Minutes Spent Total Time Spent with Patient: Total time spent is greater than 50% in coordination of care (as documented) at patient's floor/unit and/or counseling patient: Coding Level of Care Code 82403 SUB INP/OBS CARE 3/50MIN Diagnoses Pre-eclampsia in period O14.95
[2022-11-01] MEDS ORDERED: LEVOTHYROXINE SODIUM 150 MCG TABLET PO SCH ×2 (06:30→09:00)
[2022-11-01] MEDS ORDERED: ESCITALOPRAM OXALATE 10 MG TAB PO SCH (09:00)
[2022-11-01] MEDS ORDERED: PRENATAL VITAMIN 1 TAB PO SCH (09:00)
[2022-11-01 14:23] LABS: HBSAG NON-REACTIVE (NON-REACTIVE); Hepatitis A Antibody IgM NON-REACTIVE (NON-REACTIVE); Hepatitis B Core Antibody IgM NON-REACTIVE (NON-REACTIVE)
--- NOTE | 2022-11-05 12:09 | Discharge Summary ---
Date of Service November 05, 2022 Admission HPI Per Admitting Provider 22yo now about 3wk pp from c/s and elevated bps and elevated lfts concerning for preeclampsia pp. Patient came to ER noting upper back pain, mid thoracic pain and presented to ER. Called by provider in ER that they were evaluating pt for PE(neg cxr/neg CTA), but pain came and went and seemed musculoskeletal but upon evaluation of labs, noted markedly elevated lfts and bps 140-160/88. She has trace protein in urine. Denies garcía, visual change, ruq pain, epig pain. No worsening swelling. Her back pain is better right now. No pain but says she is worried her anxiety is causing her bp elevation. No current sob. Bottle feeding her baby who is doing well. Admission Exam (Per Admitting) Constitutional WD/WN, vitals as above Gastrointestinal (Abdomen) Inspection/Auscultation: + abdominal surgical incision (dry and intact- no cellulitis) Psychiatric A+Ox3, euthymic affect Discharge Data Consultations 10/30/22 17:35 ED Decision to Admit Stat Hospital Course (1) Pre-eclampsia in period: We reviewed her preeclampsia blood work and the liver transaminases continue to trend downward. We did draw a acetaminophen level which was less than 3. Even though her Tylenol intake did not exceed the recommended 24-hour dosing, she may be sensitive to frequent and regular dosing of this medication. She did have elevated transaminases with an antifungal in the past. Her blood pressures have remained in the normotensive range during her hospital stay. I suspect that her upper back pain was muscular skeletal as stretching and massage relieved the discomfort. And her work-up for cholecystitis and pulmonary embolus were negative. She does have gallstones but no evidence of active disease. Patient is aware of the presence in case she does develop symptoms of cholecystitis. We will discharge her to home after reviewing preeclampsia symptoms for which she should call if they should occur. We will have her follow-up with her primary care physician who she is hoping to establish care with the [facility] at the [place] office. 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 Discharge Plan Discharge Items Patient Disposition: Home - Self-Care Reason For Visit: PP PREECLAMPSIA Discharge Diagnosis: ppx preec Activity: Resume your previous activity Non-emergency contact: Cnc Machine Operator Call non-emergency contact if: you have any medication questions, your pain is concerning for you and your temperature is above 101.5 Follow-up/Referrals: Jamia Wagner PA-C [Primary Care Provider] - Diet: Regular Addtl Attending Provider Instructions: ACTIVITY RECOMMENDATIONS: * Gradual return to full activity over the next 2-3 weeks. * No lifting - nothing heavier than baby over the next 2-3 weeks. * Do not engage in vigorous exercise, sexual activity or sports until cleared by your physician. * Do not drive or operate any motorized equipment until cleared by your physician. * You may shower/bathe daily. MEDICATIONS: For discomfort or pain, you may use Acetaminophen (Tylenol), Ibuprofen (Advil), or Naproxen (Aleve) following the package directions. For constipation you may use Colace following the package directions. BREAST CARE: If you are not breast feeding: * Wear a supportive bra 24 hours a day for one to two weeks. * Avoid stimulating your breasts and nipples as much as possible during the first few weeks after delivery. * When taking a shower, have the warm water hit your back, not breasts. * When your breasts feel full, apply ice packs. Usually three to four times a day helps ease the discomfort. * Take a mild pain medication (Tylenol / Motrin) when you are uncomfortable. If breast feeding: * Use breast milk to lubricate nipples. Lansinoh cream may be used for sore nipples. You do not need to remove cream prior to breast feeding. If using a different brand of cream, check the label for directions regarding removal of cream prior to nursing. * Wear a supportive bra. * If having problems with breasts or breast feeding, call a strategy consultant or your health care provider. SPECIAL CARE INSTRUCTIONS: When you are discharged from the hospital, it is important for you to follow the instructions listed below: * During the first week at home, you should be able to care for yourself and your baby. In addition, the usual light household activities are encouraged. * Limit your activities to the way you feel. Do not try to clean the house or move furniture. Be sensible. * If you actively engage in sports and have done so up until the time of your delivery, you may resume these activities as soon as you feel able. This may take up to one month or even longer. Use good judgment. * Continue to take your vitamins for at least six weeks after the of your baby. * Your diet need not be limited unless you were on a special diet before your delivery. Breast-feeding mothers need around 2500 calories per day and at least 64-80 ounces of fluid per day (8 to 10 glasses). * You should eat foods from the four major food groups. Crash diets or fad diets are to be avoided. Eating lean meats, fresh fruits and vegetables, low-fat dairy products, high fiber foods and a regular exercise program, will help you get back to your pre- weight without putting your health at risk. * Constipation is sometimes a problem after delivery. Take a mild laxative as needed. If breast feeding, Milk of Magnesia is acceptable to use. You may use a suppository or Fleets enema. * A daily shower or tub bath is suggested. Wash incision daily with warm soapy water and pat dry. It doesn't need to be covered unless drainage is present. * A bloody vaginal discharge will usually continue until around four weeks . A small amount of bleeding may continue for as long as six weeks. Vaginal discharge changes from the bright red bleeding after delivery to pink then brownish and finally yellowish-pink before becoming white and disappearing. * Bleeding may increase with activity. Your first period may come in 4-8 weeks. If you are breast feeding, your period may be delayed even longer. * [place] (sex) can begin whenever both you and your partner feel comfortable and do not have any form of genital infection. It is recommended that you wait at least six weeks for internal and external healing to occur. If you have questions, please talk to your health care practitioner. A condom should be used to prevent infection and . * Foreplay, gentle intercourse and lubrication is very important the first several times to prevent pain. A water-based lubricant such as K-Y jelly or Astroglide may be used. * If you have RH negative blood and your baby is RH positive, you will receive RHOGAM by injection prior to discharge. The nurse will give you a card to keep with you that has the date and place that you received RHOGAM after delivery. * During your care, you had a Rubella screen done to check for the presence of rubella antibodies in your blood. If your test was negative, you will receive a Rubella vaccine prior to discharge. This vaccine may cause a fever, soreness at the injection site and flu-like symptoms. If these symptoms persist, notify your health care practitioner. is not advised for one month after a Rubella vaccine. * Verbalizes understanding of car seat law as reviewed with patient nursing. * Car Seat hand-out given and reviewed with patient by nursing. * Shaken baby information reviewed with patient by nursing. Call you doctor if: * Heavy bleeding (saturating several pads an hour) or passing clots the size of your fist. * A fever >101 degrees F (38.3 degrees C) on two occasions four hours apart and/or chills. * Unusual pain in the pelvic or vaginal areas. * Call the doctor for any increased redness, drainage or swelling around the incision and any pain unrelieved by prescribed pain medication. * "Baby Blues" lasting longer than two weeks. If you have any questions or concerns, call your health care practitioner at . FOLLOW UP VISIT: * Please call the office at to schedule a 6 week examination. It is important you keep this appointment. It is important for you to make arrangements for either yearly or twice yearly check-ups thereafter. Pending Studies at Discharge: No Stand-Alone Forms: My [facility], Smoking Cessation Medications and DC Order Prescriptions: Continued levothyroxine 150 mcg tablet 150 mcg PO DAILY Qty: 30 5RF betamethasone dipropionate 0.05 % lotion 1 applic TOP BID PRN (Reason: flare ups) Rx Instructions: Apply to areas of the scalp twice daily for up to 2 weeks as needed for flaring. escitalopram oxalate 10 mg tablet 10 mg PO DAILY prenat.vits,stephan,ivr-[id number] Tablet 1 tab PO DAILY naproxen sodium [Aleve] 220 mg Tablet 220 mg PO Q12H PRN (Reason: Pain) docusate sodium [Colace] 100 mg Capsule 100 mg PO DAILY PRN (Reason: Constipation) Discharge Orders: Discharge Order (Routine); Ordered 10/31/22 Ordered By: Demetrice Flores Admission Data Admit Date/Time: 10/30/22 16:33 Attending Provider: Carlota Lopez Admit Provider: Carlota Lopez Primary Care Provider: Jamia Wagner Coding Level of Care Code 67621 INP/OBS DISCH >30 MIN Diagnoses Pre-eclampsia in period O14.95
== END 2022-10-31 17:25 | disposition home or self-care (01) | DRG 776 ==
LOC: ED 12:54 → INTOOBSV 16:33 → 4S1 19:42

== ENCOUNTER 2024-10-07 05:30 | Inpatient (IN) ==
--- NOTE | 2024-09-29 11:34 | Anesthesiology Consultation ---
Date of Service September 29, 2024 Assessment & Plan (1) Encounter for pre-operative examination: Infectious disease screening: Per assessment on 09/29/24- No known recent infectious disease contacts or current infectious disease symptoms. Chart Review Chart Review: order entry representative initiated History Surgery Operation Date: 10/07/24 07:30 Proposed Procedures p Section (Delivery of Baby Through Abdominal Incision), - Yumiko Stroud MD, FACOG s With Bilateral Tubal Ligation - Yumiko Stroud MD, FACOG Height/Weight Height: 5 ft 7 in Weight: 131.542 kg Allergies Allergy/AdvReac Type Severity Reaction Status Date / Time No Known Allergies Allergy Verified 09/29/24 10:46 Medications Home Medications Medication Instructions Recorded Confirmed Last Taken escitalopram oxalate 10 mg tablet 10 mg PO QAM 04/16/21 09/29/24 10/30/22 cyanocobalamin (vitamin B-12) 1,000 mcg PO DAILY #30 caps 06/05/23 09/29/24 Unknown 1,000 mcg capsule betamethasone dipropionate 0.05 % 1 applic topical DAILY PRN flare 01/05/24 09/29/24 Unknown lotion ups #60 mL levothyroxine 200 mcg tablet 200 mcg PO .COMPLEX #100 tabs 03/16/24 09/29/24 Unknown levothyroxine 50 mcg tablet 50 mcg PO .COMPLEX #100 tabs 03/16/24 09/29/24 Unknown PNV [id number] 1 tab PO DAILY 03/26/24 09/29/24 Unknown [ Gummies] insulin NPH isoph U-100 human 100 10 unit (0.1 mL) subcut .at bed 08/03/24 09/29/24 Unknown unit/mL (3 mL) subcutaneous pen time #15 mL (Novolin N FlexPen) pen needle, diabetic 32 gauge x #100 ea 08/03/24 09/24/24 Unknown " cholecalciferol (vitamin D3) 50 50 mcg PO DAILY 09/29/24 09/29/24 Unknown mcg (2,000 unit) tablet (Vitamin D3) Past Medical History Medical History Anxiety Elevated transaminase level Intermittent x several years Gallstones Gestational diabetes Cha's disease History of COVID-19 Fall 2023- resolved Hypothyroidism Missed Panic attack Pre-eclampsia in period Hx Psoriasis Vitamin D deficiency Past Family History Family History Grandfather (Maternal) Hypertension Parkinson disease Aunt Hypothyroid Denies family history of Ovarian cancer Diabetes Breast cancer Lung cancer Colorectal cancer Stroke Past Surgical History Surgical History Previous section Social History Smoking Status: Never smoker Do You Dip or Chew Tobacco: No Hx Alcohol Use: No Hx Substance Use: No substance use type: does not use Testing Electrocardiogram Date: 07/13/24 NSR at 97bpm. "Normal ECG" Isolated lead III TWI noted.
[2024-10-07] MEDS: LACTATED RINGER'S 1,000 ML IV SCH (05:50)
[2024-10-07 06:04] LABS: Hematocrit (blood only) 36.6 % (37.0-47.0); Hemoglobin 12.8 g/dl (12.0-16.0); Mean Corpuscular Hemoglobin 29.7 pg (25.0-34.0); Mean Corpuscular Volume 84.9 fL (80.0-100.0); Mean Platelet Volume 10.6 fL (9.4-12.4); Platelet Count 228 K/uL (130-400); RDW Coefficient of Variation 12.6 % (11.5-14.5); RDW Standard Deviation 38.7 fL (36.4-46.3); Red Blood Count 4.31 M/uL (4.20-5.40); White Blood Count 8.82 K/ul (4.8-10.8)
[2024-10-07] MEDS: CITRIC ACID/SODIUM CITRATE 15 ML UDC PO SCH (06:30)
[2024-10-07] MEDS: ACETAMINOPHEN 500 MG TAB PO SCH (06:30)
[2024-10-07] MEDS ORDERED: LACTATED RINGER'S 1,000 ML IV SCH (06:45)
[2024-10-07] MEDS ORDERED: PHENYLEPHRINE HCL 25 MG/250 ML NSS IV ONE (06:48)
[2024-10-07] MEDS ORDERED: PHENYLEPHRINE 100MCG/ML 5ML SYR ONE (06:48)
[2024-10-07] MEDS ORDERED: ONDANSETRON INJ 2 MG/ML 2 ML VIAL ONE (06:49)
[2024-10-07] MEDS ORDERED: fentaNYL citrate PF 100 MCG/2 ML VIAL ONE (06:49)
[2024-10-07] MEDS ORDERED: OXYTOCIN 10 UNITS/ML VIAL ONE (06:49)
[2024-10-07] MEDS ORDERED: MoRPHine SULFATE PF 1 MG/ML 10 ML AMP/VIAL ONE (06:49)
[2024-10-07] MEDS ORDERED: SODIUM CHLORIDE 0.9% 100 ML IV PRN ×2 (06:54→06:55)
--- NOTE | 2024-10-07 07:12 | History & Physical Report ---
Date of Service October 07, 2024 Assessment & Plan (1) Encounter for pre-operative examination: Plan: Repeat section. The patient was counseled to the nature of the procedure including alternatives such as labor. Risks were discussed including bleeding infection injury to bowel bladder ureter vessels and even baby. The risks of internal organ injury were discussed as being higher with prior sections. Deep Vein Thrombosis, pulmonary embolus and breakdown of the incision discussed. Deep vein thrombosis pulmonary embolus hernia and failure of the incision to heal were discussed Patient verbalized understanding of this and was given ample time to ask questions Admission and Anticipated Discharge Date Admission Date: October 07, 2024 History of Present Illness Primary Care Provider: FIFI Moon VIPIN Calculator Estimated Delivery Date Method Current WG Current Estimate 10/11/24 LMP (Certain) 39w 2d Other Estimates 10/18/24 Ultrasound #1 38w 2d 10/12/24 Ultrasound #2 39w 1d LMP: 01/05/24 : 3 Full term: 1 Premature: 0 Total Number of Induced Abortions: 0 Total Number of Spontaneous Abortions: 1 Ectopics: 0 Multiple births: 0 Number of Living Children: 1 and Delivery Plans GDM on insulin *Wkly NSTs @32wks and Twice wkly @36wks *Growth US Q 4wks @ 24wks *Deliver by EDC prior /desires sterilization *desires repeat c/s and -t-u-b-a-l- C/S WITH TUBAL SCHEDULED FOR 10/07/[address] GAONA AND DR[address] KULKARNI ASSIST 09/17 likely no longer planning tubal - see notes Hypothyroid *Check TFTs Q4wks GBS positive urine *Treat in Labor Obesity (BMI 40 and higher @ beginning of ) *Growth US @ 32wks *Weekly NSTs @ 34wks *BMI 40 or greater offer detailed/level II anatomy at [facility] 06/07 *BMI 40 or above offer delivery by [facility]. Allergies Allergy/AdvReac Type Severity Reaction Status Date / Time No Known Allergies Allergy Verified 10/06/24 10:14 Home Medications Medication Instructions Recorded Confirmed Type escitalopram oxalate 10 mg tablet 10 mg PO QAM 04/16/21 10/07/24 History cyanocobalamin (vitamin B-12) 1,000 mcg PO DAILY #30 caps 06/05/23 10/07/24 Rx 1,000 mcg capsule betamethasone dipropionate 0.05 % 1 applic topical DAILY PRN flare 01/05/24 10/07/24 Rx lotion ups #60 mL levothyroxine 200 mcg tablet 200 mcg PO .COMPLEX #100 tabs 03/16/24 10/07/24 Rx levothyroxine 50 mcg tablet 50 mcg PO .COMPLEX #100 tabs 03/16/24 10/07/24 Rx PNV [id number] 1 tab PO DAILY 03/26/24 10/07/24 History [ Gummies] insulin NPH isoph U-100 human 100 10 unit (0.1 mL) subcut .at bed 08/03/24 10/07/24 Rx unit/mL (3 mL) subcutaneous pen time #15 mL (Novolin N FlexPen) pen needle, diabetic 32 gauge x #100 ea 08/03/24 10/06/24 Rx 532" cholecalciferol (vitamin D3) 50 50 mcg PO DAILY 09/29/24 10/07/24 History mcg (2,000 unit) tablet (Vitamin D3) Patient History Medical History Anxiety Elevated transaminase level Intermittent x several years Gallstones Gestational diabetes Cha's disease History of COVID-fall- resolved Hypothyroidism Missed Panic attack Pre-eclampsia in period Hx Psoriasis Vitamin D deficiency Surgical History Previous section Family History Grandfather (Maternal) Hypertension Parkinson disease Aunt Hypothyroid Denies family history of Ovarian cancer Diabetes Breast cancer Lung cancer Colorectal cancer Stroke Social History Smoking Status: Never smoker Second Hand Exposure: No; Do You Dip or Chew Tobacco: No; Tobacco Cessation Education Requested by Patient: No Hx Alcohol Use: No Hx Substance Use: No Preferred Language: Ukrainian Communication Ability: Effective Visual Impairment: No Limitations Hearing Ability: Normal Plastic Shaper Required: No Beliefs That Will Affect Care: None marital status: marital status details: Olvin Will (25) [phone] Current Living Situation: Spouse and Family Current Living Situation Comment: lives with spouse current occupational status: unemployed current occupation: manage rental properties. How many Children do You have: 1 Other Information That Helps Us Care for You: No Feels Safe at Home: Yes Safety Concerns: Feels Safe At This Time Childhood Exposure to Second-Hand Smoke: No Diet: regular caffeine: Yes Dental Care, Regularly: Yes Physical Activity Frequency: Daily Seatbelt Use: always Sunscreen Use: Yes Assistive Devices: None Physical Exam Constitutional: WD/WN, vitals as above well developed and well nourished Respiratory: normal respiratory effort, lungs clear to auscultation normal respiratory effort Cardiovascular: RRR, no murmur, no edema Gastrointestinal (Abdomen): normal bowel sounds, soft, nontender, no hepatosplenomegaly Results & Data Vital Signs (Past 12 Hours) Vital Signs Temp Pulse Resp BP 10/07/24 07:06 97.7 F 20 10/07/24 07:06 80 134/69 10/07/24 06:35 76 128/64 10/07/24 05:48 98.2 F 16 10/07/24 05:45 98.2 F 10/07/24 05:40 100 H 162/82 H 10/07/24 05:39 100 H 174/92 H Coding Level of Care Code None Diagnoses Encounter for pre-operative examination Z01.818
[2024-10-07] MEDS: ceFAZolin 3000MG 3,000 MG/72.5 ML BAG IV SCH (10:13)
[2024-10-07] MEDS ORDERED: ePHEDrine sulfate 50 MG/5 ML SYR ONE (10:42)
[2024-10-07] MEDS ORDERED: NALOXONE HCL 0.4 MG/1 ML VIAL/CARP IV PRN (10:59)
[2024-10-07] MEDS ORDERED: PROMETHAZINE 6.25 MG/50.25 ML BAG IV PRN (10:59)
[2024-10-07] MEDS ORDERED: ONDANSETRON INJ 2 MG/ML 2 ML VIAL IV PRN (10:59)
[2024-10-07] MEDS ORDERED: oxyCODONE HCL IR 5 MG TAB (IMMEDIATE RELEASE) PO PRN (10:59)
[2024-10-07] MEDS ORDERED: LACTATED RINGER'S 500 ML IV PRN (10:59)
[2024-10-07] MEDS ORDERED: NALOXONE HCL 1 MG in SODIUM CHLORIDE 0.9% 1,000 ML IV PRN (10:59)
[2024-10-07] MEDS ORDERED: NALOXONE HCL 0.08 MG in SYRINGE 1.8 ML IV PRN (10:59)
[2024-10-07] MEDS ORDERED: ePHEDrine sulfate 50 MG/ML AMP IV PRN (10:59)
[2024-10-07] MEDS ORDERED: HYDROmorphone INJ 0.5 MG/0.5 ML SYR IV PRN (10:59)
[2024-10-07] MEDS ORDERED: diphenhydrAMINE 50 MG/ML VIAL IV PRN (10:59)
[2024-10-07] MEDS ORDERED: NO NARCOTICS OR SEDATIVES SCH (11:00)
[2024-10-07] MEDS ORDERED: DC INTRASPINAL MORPHINE SCH (11:00)
--- NOTE | 2024-10-07 11:26 | Operative Report ---
Post Operative Report Pre & Post Diagnosis Operation Date: 10/07/24 07:30 Previous section request repeat 39 completed weeks I identified the patient and participated in the time-out.: Yes Procedure Operation Date: 10/07/24 07:30 Low segment transverse section Surgeon Yumiko Stroud MD, FACOG Intensive Care Medicine Specialist Dr. Fontana Quantitative Blood Loss (QBL) 611 Findings Consistent with Post-Op Diagnosis Specimens cord blood Description of Procedure Regional anesthetic had been given by anesthesia patient was prepped and draped with a leftward tilt preoperative antibiotics had been given in appropriate timing by anesthesiology. Once the prep was allowed to fully dry timeout was performed. Pickups with teeth were used to test the incision area was found to be adequate for incision as the patient did not feel sharp pain. Scalpel was used to make a Pfannenstiel incision on the lower abdomen. We then cut through the subcutaneous fat down to the level of the anterior rectus sheath fascia this was cut in the midline and then extended laterally with the curved Le scissors. At this stage we then placed 2 Margarita clamps on the anterior aspect of the fascia. Using the curved Le's we are able to dissect the fascia superiorly away from the rectus muscles. Care was taken to maintain hemostasis. Maragrita clamps were then placed to the inferior aspect of the anterior sheath of the fascia. Fascia was then dissected away from the rectus muscles inferiorly towards the pubic bone. A Margarita was then placed in the midline both inferiorly and superiorly. This was to allow exposure by retraction rectus muscles were in the midline with were then able to cut through the peritoneum and then enter the peritoneal cavity. Opening was enlarged to allow exposure of the peritoneal cavity both superiorly and inferiorly. Once adequate space was obtained a bladder retractor was placed to expose the lower segment Metzenbaums were used to dissect the bladder flap inferiorly away from the uterus. This was done sharply bladder retractor was then repositioned to expose the lower segment of the uterus Fresh scalpel was used to make a low transverse incision on the uterus. Uterus was then entered bluntly with the operators finger, membranes ruptured and the opening was enlarged using the operators fingers bluntly pulling superiorly and inferiorly to allow exposure. Baby was delivered by first flexion of the head elevation of the head out of the pelvis and then pressure by the hr administrative assistant on the maternal abdomen. Baby's head was then delivered mouth and then nares were suctioned and then using gentle traction the baby was fully delivered. Live vigorous infant. Fluid was clear cord clamped and cut cord gases obtained cord blood obtained baby handed to pediatrics. Placenta removed was removed with traction we ensure the entire placenta was removed with a moist lap sponge into the uterus Uterus was then exteriorized. IV Pitocin had been started by anesthesia tone improved there were no extensions the uterus was then closed using 0 Monocryl in a 2 layer closure the first layer closed in a running locked fashion from left to right and then a second closure from left to right in a running nonlocked fashion. At this stage hemostasis was excellent. Uterus was placed back in the peritoneal cavity with suction irrigation out and inspection of the uterus at this stage revealed excellent hemostasis Retractors were removed urine color was clear at this stage of the case we inspected the rectus muscles they were hemostatic fascia was closed with 0 Vicryl subcutaneous fat was irrigated and closed with 3-0 Vicryl skin closed with 4-0 subcuticular Monocryl Note there were minimal adhesions the adnexa were normal as was the uterus there was minimal bladder flap adhesions I attest to the content of the Intraoperative Record and any orders documented therein. Any exceptions are noted below. OB Procedure Charges 80739
--- NOTE | 2024-10-07 11:44 | Anesthesiology Progress Note ---
Date of Service October 07, 2024 Anesthesia Post Procedure Vital Signs Vital Signs: Temp Pulse Resp BP Pulse Ox 10/07/24 11:43 79 100 10/07/24 11:38 75 99 10/07/24 11:36 71 120/57 L 10/07/24 11:33 73 100 10/07/24 09:32 36.9 C 20 10/07/24 09:30 82 128/69 10/07/24 07:06 36.5 C 20 10/07/24 07:06 80 134/69 10/07/24 06:35 76 128/64 10/07/24 05:48 36.8 C 16 10/07/24 05:45 36.8 C 10/07/24 05:40 100 H 162/82 H 10/07/24 05:39 100 H 174/92 H Transfer of Care Handoff Completed per policy Notes Mental Status: alert / awake / arousable and participated in evaluation Patient Amnestic to Procedure: No Nausea / Vomiting: adequately controlled Pain: adequately controlled Airway Patency, RR, SpO2: stable & adequate BP & HR: stable & adequate Hydration State: stable & adequate Neuraxial Anesthesia: was administered and sensory block is resolving Anesthetic Complications: no major complications apparent and Pt Satisfied with anesthetic care
[2024-10-07] MEDS ORDERED: MAGNESIUM HYDROXIDE SUSP 30 ML UDC PO PRN (12:00)
[2024-10-07] MEDS ORDERED: HYDROCORTISONE ACETATE 25 MG SUPP PR PRN (12:00)
[2024-10-07] MEDS ORDERED: CALCIUM CARBONATE 500 MG CHEWABLE TAB PO PRN (12:00)
[2024-10-07] MEDS ORDERED: BENZOCAINE 20% SPRY 85 APPLN/85 GM CAN EXT PRN (12:00)
[2024-10-07] MEDS ORDERED: SENNA 8.6 MG TAB PO PRN (12:00)
[2024-10-07] MEDS ORDERED: BETAMETHASONE VAL 0.1% CR 15 GM EXT PRN (12:14)
[2024-10-07] MEDS: KETOROLAC 30 MG/ML VIAL IV SCH (12:19)
[2024-10-07] MEDS: MoRPHine SULFATE PF 1 MG/ML 10 ML AMP/VIAL INT SPINAL ONE (12:37)
[2024-10-07] MEDS: SODIUM CHLORIDE 0.9% 1,000 ML IV SCH (12:37)
[2024-10-07] MEDS: DIPHTHER/TETAN/PERTUS Vaccine (Tdap, Adol/Adult) 0.5mL IM ONE (12:47)
[2024-10-07] MEDS: SIMETHICONE 80 MG CHEW PO SCH (12:49)
[2024-10-07] MEDS: ACETAMINOPHEN 325 MG TAB PO SCH (17:57)
[2024-10-07] MEDS: NALBUPHINE HCL INJ 10 MG/ML AMP IV PRN (17:58)
[2024-10-07] MEDS: OXYTOCIN 20 UNITS/LR 1,002 ML IV SCH (18:34)
[2024-10-07] MEDS: LACTATED RINGER'S 1,000 ML IV ONE (21:01)
[2024-10-07] MEDS: LEVOTHYROXINE SODIUM 50 MCG TABLET PO SCH (21:15)
[2024-10-07] MEDS: LEVOTHYROXINE SODIUM 200 MCG TABLET PO SCH (21:15)
[2024-10-07] MEDS: DOCUSATE SODIUM 100 MG CAP PO SCH (21:15)
[2024-10-07] MEDS ORDERED: Nursing to Pharmacy Communication SCH (21:30)
[2024-10-07] MEDS: ESCITALOPRAM OXALATE 10 MG TAB PO SCH (21:53)
[2024-10-08] MEDS: LACTATED RINGER'S 1,000 ML IV SCH (04:39)
[2024-10-08] MEDS ORDERED: HYDROmorphone INJ 0.5 MG/0.5 ML SYR IV PRN (04:59)
[2024-10-08] MEDS ORDERED: ONDANSETRON INJ 2 MG/ML 2 ML VIAL IV PRN (04:59)
[2024-10-08] MEDS ORDERED: oxyCODONE HCL IR 5 MG TAB (IMMEDIATE RELEASE) PO PRN (04:59)
[2024-10-08] MEDS ORDERED: diphenhydrAMINE Capsule 25 MG CAP PO PRN (04:59)
[2024-10-08] MEDS ORDERED: diphenhydrAMINE 50 MG/ML VIAL IV PRN (04:59)
[2024-10-08] MEDS ORDERED: PROMETHAZINE 12.5 MG/50.5 ML BAG IV PRN (04:59)
--- NOTE | 2024-10-08 06:13 | Obstetrical Progress Note ---
Date of Service October 08, 2024 Assessment & Plan (1) examination following delivery: (2) Insulin controlled gestational diabetes mellitus (GDM) during : (3) Carrier of group B Streptococcus: (4) Hypothyroid in , antepartum: Plan Pt is 24 yo post- day 1 s/p repeat CS at 39w2d. complicated by GDM and obesity.Pt with difficulty urinating following CS, fley was left in place until midnight. Pt was able to void 900ml since then. Pt is eating and drinking without nausea or vomiting. - DC mIVF - Encourage ambulation - Encourage breast feeding - Pain control with ibuprofen, tylenol, Toradol, hydromorphone PRN - Anticipate DC 10/09 Admission and Anticipated Discharge Date Admission Date: October 07, 2024 Supervising Physician Co-Signing Physician Notes Resident Physician Supervision Note: I was present with [Name of resident] during the history and exam. I discussed the case with the resident and agree with the findings and plan as documented in the note. Any exceptions or clarifications are listed here: [None] Documented By: Yumiko Stroud MD, FACOG Subjective Pt is 24 yo post- day 1 s/p repeat CS at 39w2d. complicated by GDM and obesity. Ambulation:In and out of room Voiding:voiding normally Passing gas: no BM: no Diet tolerance:regular diet Lochia:bloody, no clots Feeding type: breast Current pain level: 3 /10 improved with Toradol and ibuprofen Resting comfortably this morning in NAD. Denies WEISS, CP, SOB, N/V/D, LE pain/swelling. Review of Systems Review of Systems: As per HPI Physical Exam Constitutional: WD/WN, vitals as above Respiratory: normal respiratory effort, lungs clear to auscultation Gastrointestinal (Abdomen): normal bowel sounds, soft, nontender, no hepatosplenomegaly Uterine fundus firm and at level of umbilicus Skin: Lower abdominal incision is covered by REAL dressing Neurologic: PERRL, EOMI, accommodation nl, no face palsy, no dysarthria Moving all 4 extremities on command Psychiatric: A+Ox3, euthymic affect Results & Data Vital Signs (Past 12 Hours) Vital Signs Temp Pulse Resp BP Pulse Ox O2 Del Method 10/08/24 05:56 18 99 10/08/24 04:45 16 97 10/08/24 04:00 16 99 10/08/24 03:00 16 99 10/08/24 02:00 18 97 10/08/24 00:58 16 99 10/07/24 23:15 16 99 10/07/24 23:15 37 C 74 16 124/83 99 Room Air 10/07/24 22:27 20 100 10/07/24 21:30 20 100 10/07/24 20:50 20 96 10/07/24 20:50 37.0 C 78 20 134/85 96 Room Air 10/07/24 19:30 20 99 10/07/24 18:30 20 100 Resident Activity Tracking Resident Involvement: Resident Care Provided Care Provided: Adult Hospital Medicine
[2024-10-08 06:20] LABS: Basophils # (auto) 0.02 K/uL (0.00-0.20); Basophils % (auto) 0.2 %; Eosinophils # (auto) 0.02 K/uL (0.00-0.50); Eosinophils % (auto) 0.2 %; Hematocrit (blood only) 32.5 % (37.0-47.0); Hemoglobin 11.4 g/dl (12.0-16.0); Immature Granulocytes # (auto) 0.04 K/uL (0.01-0.20); Immature Granulocytes % (auto) 0.4 %; Lymphocytes # (auto) 1.65 K/uL (1.20-3.40); Mean Corpuscular Hemoglobin 30.3 pg (25.0-34.0); Mean Corpuscular Hgb Conc 35.1 g/dL (32.0-36.0); Mean Corpuscular Volume 86.4 fL (80.0-100.0); Mean Platelet Volume 10.6 fL (9.4-12.4); Monocytes # (auto) 0.67 K/uL (0.11-0.59); Monocytes % (auto) 6.1 %; Neutrophils # (auto) 8.62 K/uL (1.40-6.50); Neutrophils % (auto) 78.1 %; Platelet Count 204 K/uL (130-400); RDW Coefficient of Variation 12.6 % (11.5-14.5); RDW Standard Deviation 39.8 fL (36.4-46.3); Red Blood Count 3.76 M/uL (4.20-5.40); White Blood Count 11.02 K/ul (4.8-10.8)
[2024-10-08] MEDS: CHOLECALCIFEROL 25 MCG (1000 UNITS) TAB PO SCH (07:38)
[2024-10-08] MEDS: FERROUS SULFATE 325 MG TAB PO SCH (07:38)
[2024-10-08] MEDS: PRENATAL VITAMIN 1 TAB PO SCH (07:38)
[2024-10-08] MEDS: CYANOCOBALAMIN (B-12) 500 MCG TABLET PO SCH (07:39)
[2024-10-08] MEDS ORDERED: [UNRECOGNIZED DRUG - REMARK] PO SCH (09:00)
[2024-10-08] MEDS ORDERED: ESCITALOPRAM OXALATE 10 MG TAB PO SCH (09:00)
[2024-10-08] MEDS ORDERED: KETOROLAC 30 MG/ML VIAL IV PRN (11:28)
[2024-10-08] MEDS: IBUPROFEN 600 MG TAB PO SCH (11:36)
[2024-10-08 15:56] VITALS: O2SAT 98
[2024-10-08] MEDS: bisacodyL 5 MG TABEC PO SCH (20:00)
[2024-10-09 01:37] VITALS: RESP 18
--- NOTE | 2024-10-09 05:57 | Obstetrical Progress Note ---
Date of Service October 09, 2024 Assessment & Plan (1) examination following delivery: (2) Insulin controlled gestational diabetes mellitus (GDM) during : (3) Carrier of group B Streptococcus: (4) Hypothyroid in , antepartum: Plan Pt is 24 yo post- day 2 s/p repeat CS at 39w2d. complicated by GDM and obesity. Pt is feeling well and is ready to DC home. - Encourage ambulation - Pain control with ibuprofen, tylenol, and hydromorphone PRN - Anticipate DC today Admission and Anticipated Discharge Date Admission Date: October 07, 2024 Supervising Physician Co-Signing Physician Notes Resident Physician Supervision Note: I interviewed and examined the patient. Discussed with Dr. Flanagan and agree with findings and plan as documented in the note. Any exceptions or clarifications are listed here: Doing very well. Desires d/c. Instructions given. f/u in 6 weeks, one week for real dressing. Documented By: Digna Mahajan MD, FACOG Subjective Pt is 24 yo post- day 2 s/p repeat CS at 39w2d. complicated by GDM and obesity. Ambulation:In room Voiding:voiding normally Passing gas: yes BM: no Diet tolerance:regular diet Lochia:bloody, small clots Feeding type: breast, transitioning to formula Current pain level: 0-4 /10 improved with ibuprofen and tylenol Resting comfortably this morning in NAD. Denies WEISS, CP, SOB, N/V/D, LE pain/swelling. Review of Systems Review of Systems: As per HPI Physical Exam Constitutional: WD/WN, vitals as above Respiratory: normal respiratory effort, lungs clear to auscultation Gastrointestinal (Abdomen): normal bowel sounds, soft, nontender, no hepatosplenomegaly Uterine fundus is firm and 2 cm below level of umbilicus Lower abdominal incision is covered by REAL bandage. No incisional drainage noted on dressing Neurologic: PERRL, EOMI, accommodation nl, no face palsy, no dysarthria Psychiatric: A+Ox3, euthymic affect Results & Data Vital Signs (Past 12 Hours) Vital Signs Temp Pulse Resp BP Pulse Ox O2 Del Method 10/09/24 00:15 36.5 C 82 18 130/84 98 Room Air 10/08/24 21:30 Room Air 10/08/24 21:00 36.8 C 58 L 16 124/82 98 Room Air Resident Activity Tracking Resident Involvement: Resident Care Provided Care Provided: Adult Hospital Medicine
[2024-10-09 07:13] LABS: Hematocrit (blood only) 30.2 % (37.0-47.0); Hemoglobin 10.2 g/dl (12.0-16.0)
[2024-10-09 08:24] VITALS: BP 128/82; PULSE 70; TEMP 98.4
[2024-10-09] MEDS ORDERED: bisacodyL 10 MG SUPP PR PRN (11:28)
[2024-10-09] MEDS ORDERED: IBUPROFEN 600 MG TAB PO PRN (11:28)
[2024-10-09] MEDS ORDERED: ACETAMINOPHEN 325 MG TAB PO PRN (17:28)
--- NOTE | 2024-10-12 16:40 | Discharge Summary ---
Date of Service October 12, 2024 Admission HPI Per Admitting Provider VIPIN Calculator Estimated Delivery Date Method Current WG Current Estimate 10/11/24 LMP (Certain) 39w 2d Other Estimates 10/18/24 Ultrasound #1 38w 2d 10/12/24 Ultrasound #2 39w 1d LMP: 01/05/24 : 3 Full term: 1 Premature: 0 Total Number of Induced Abortions: 0 Total Number of Spontaneous Abortions: 1 Ectopics: 0 Multiple births: 0 Number of Living Children: 1 and Delivery Plans GDM on insulin *Wkly NSTs @32wks and Twice wkly @36wks *Growth US Q 4wks @ 24wks *Deliver by [facility]C prior /desires sterilization *desires repeat c/s and -t-u-b-a-l- C/S WITH TUBAL SCHEDULED FOR 10/07/[address] GAONA AND DR[address] KULKARNI ASSIST 09/17 likely no longer planning tubal - see notes Hypothyroid *Check TFTs Q4wks GBS positive urine *Treat in Labor Obesity (BMI 40 and higher @ beginning of ) *Growth US @ 32wks *Weekly NSTs @ 34wks *BMI 40 or greater offer detailed/level II anatomy at [facility] 06/07 *BMI 40 or above offer delivery by [facility]. Admission Exam (Per Admitting) Constitutional WD/WN, vitals as above well developed and well nourished Respiratory normal respiratory effort, lungs clear to auscultation normal respiratory effort Cardiovascular RRR, no murmur, no edema Gastrointestinal (Abdomen) normal bowel sounds, soft, nontender, no hepatosplenomegaly Discharge Data Consultations 10/07/24 05:35 Consult Anesthesiology Stat Procedures Performed Operation Date: 10/07/24 07:30 Actual Procedures p Section (Delivery of Baby Through Abdominal Incision),with the of a live male child at 1056 - J. Jose Martin Gaona MD, FACOG Supervising Physician Co-Signing Physician Notes Resident Physician Supervision Note: I interviewed and examined the patient. Discussed with Dr. Flanagan and agree with findings and plan as documented in the note. Any exceptions or clarifications are listed here: Doing very well. Desires d/c. Instructions given. f/u in 6 weeks, one week for nichol dressing. Documented By: Digna Mahajan MD, FACOG Coding Level of Care Code None
== END 2024-10-09 10:45 | disposition home or self-care (01) | DRG 788 ==
LOC: 4S1 05:30 → EDSTATUS 07:30 → 4E2 14:31